=== PATIENT | male | born 1960 | race Caucasian/White ===

== ENCOUNTER 2017-04-23 11:25 | Inpatient (IN) | payer OTHER, MEDICARE ==
[~2017-04-23] VITALS: Ht 182.9 cm; Wt 104.3 kg
[~2017-04-23 11:25] MED LIST: BACTRIM DS 8001 TAB PO; DULOXETINE HCL30 MG PO; GABAPENTIN300 M2 PO; JANUMET 50-1,01 EACH PO; KEFLEX500 MG PO; LANTUS SOL100 UNIT/1 SC; LISINOPRIL10 M1 PO; NAPROSYN500 M1 PO; NEURONTIN300 M1 PO; NOVOLOG100 U/ML SC; PERCOCET 325 MG1 TA2 PO; PERCOCET 5-3251 EACH PO; QUETIAPINE FUM100 M1 PO; REMERON30 M3 PO
--- NOTE | 2017-04-23 11:30 | NUR ---
HOMERO FROM HOME. PT A DIABETIC REPORTS NAUSEA FOR 3 DAYS, UNABLE TO TAKE IN PO FOR 2 DAYS. ALSO REPORTS BURNING SOLES OF FEET ON DECK WHEN HE WENT TO [employer] [place].
--- NOTE | 2017-04-23 11:34 | NUR ---
PT WITH OPEN AREAS TO BOTTOM OF FEET, OPEN TO AIR.
[2017-04-23] MEDS ORDERED: METFORMIN HCL500 M3 PO (11:39)
[2017-04-23] MEDS ORDERED: JANUVIA100 M1 PO (11:39)
--- NOTE | 2017-04-23 11:45 | ED GENERAL ADULT ---
History of Present Illness General Chief Complaint: General Adult Stated Complaint: BIBA FOR NAUSEA X FEW DAYS, MERIDA SOLES OF FEET Source: patient Exam Limitations: no limitations Vital Signs & Intake/Output Vital Signs & Intake/Output Vital Signs Date Time Temp Pulse Resp B/P B/P Pulse O2 O2 Flow FiO2 Mean Ox Delivery Rate 04/23 1603 98.4 87 22 168/84 98 Room Air 04/23 1447 97.1 88 20 198/100 06 1350 97.5 89 16 198/100 98 Room Air 04/23 1127 97.2 88 20 190/95 96 Room Air Allergies Coded Allergies: NO KNOWN ALLERGIES (11/18/14) Reconcile Medications Duloxetine HCl 30 MG CAPSULE.DR 3 CAP PO DAILY MENTAL HEALTH (Reported) Gabapentin 300 MG CAPSULE 2 CAP PO TID PAIN (Reported) Insulin Glargine,Hum.rec.anlog (Lantus Solostar) 100 UNIT/ML (3 ML) INSULN.PEN 20 UNIT SC QPM DM (Reported) Insulin Glargine,Hum.rec.anlog (Lantus Solostar) 100 UNIT/1 ML INSULN.PEN 28 UNIT SC QPM DIABETES (Reported) Lisinopril 10 MG TABLET 1 TAB PO DAILY HEART (Reported) Metformin HCl 500 MG TABLET 1 TAB PO BID DIABETES (Reported) Mirtazapine (Remeron) 30 MG TABLET 1 TAB PO QPM SLEEP (Reported) Quetiapine Fumarate 100 MG TABLET 1 TAB PO QPM SLEEP (Reported) Sitagliptin Phos/Metformin HCl (Janumet 50-1,000 MG Tablet) 1 EACH TABLET 1 TAB PO BID DIABETES (Reported) Sitagliptin Phosphate (Januvia) 100 MG TABLET 1 TAB PO DAILY DIABETES ( Reported) Triage Note: BIBA FROM HOME. PT A DIABETIC REPORTS NAUSEA FOR 3 DAYS, UNABLE TO TAKE IN PO FOR 2 DAYS. ALSO REPORTS BURNING SOLES OF FEET ON DECK WHEN HE WENT TO [place]. Triage Nurses Notes Reviewed? yes Onset: Abrupt Duration: getting worse Timing: recent history Severity: moderate Severity Numbers: 5 HPI: Patient is a 56-year-old male who is a type I diabetic insulin-dependent, hypertension hyperlipidemia and peripheral neuropathy who states that 3 days ago on Wednesday he was ambulating outside on his deck where he noted today of concerns of skin peeling to the bottom of his feet where he thinks that he burned his feet outside that began Wednesday. Patient states that he does not feel any sensation to his feet due to his peripheral neuropathy and was brought in by [facility] for concerns of infection where he has developed tactile fevers and redness to the bottom of his feet to have tracked to the top of FEET. Patient also has been complaining of three-day history of nausea and decreased by mouth intake and is not taking his medications. Patient also complains of generalized weakness and fatigue Denies any history of DKA Patient does state that he smokes cigarettes and drinks 10 ALCOHOLIC beverages a week Patient's biological inspector is Dr. Dunne (DESTINEE PROCTOR) Past History Travel History Traveled to [place] past 21 day No Medical History Any Pertinent Medical History? see below for history Neurological: NEUROPATHY EENT: NONE Cardiovascular: NONE Respiratory: NONE Gastrointestinal: NONE Hepatic: NONE Renal: NONE Musculoskeletal: NONE Psychiatric: alcohol dependence, depression Endocrine: IDDM Surgical History Surgical History: non-contributory Psychosocial History What is your primary language Fijian Tobacco Use: Current Daily Use Daily Tobacco Use Amount/Type: => 5 Cigarettes daily ETOH Use: occasional use Illicit Drug Use: denies illicit drug use Family History Hx Contributory? No (DESTINEE PROCTOR) Review of Systems Review of Systems Constitutional: Reports: see HPI, fever, malaise, weakness. EENTM: Reports: no symptoms. Respiratory: Reports: see HPI. Denies: cough, short of breath. Cardiovascular: Reports: see HPI. Denies: chest pain, palpitations. GI: Reports: see HPI, nausea. Denies: abdominal pain. Genitourinary: Reports: no symptoms. Musculoskeletal: Reports: no symptoms. Skin: Reports: see HPI. Neurological/Psychological: Reports: no symptoms. Hematologic/Endocrine: Reports: no symptoms. Immunologic/Allergic: Reports: no symptoms. All Other Systems: Reviewed and Negative (DESTINEE PROCTOR) Physical Exam Physical Exam General Appearance: no apparent distress, alert, comfortable Comments: HEENT: Normal EENT exam, Neck: Supple, no lymphadenopathy, normal range of motion without pain or tenderness Back: Nontender, no CVA tenderness. Cardiovascular: Regular rate and rhythms no murmurs rubs or gallops, normal JVP Respiratory: Chest nontender. No respiratory distress.breath sounds clear to auscultation bilaterally Abdomen: Soft, nontender nondistended, no appreciable organomegaly. Normal bowel sounds. No ascites Neuro: Alert oriented x3, motor sensory normal, Psych: Mood and affect is normal, memory and judgment is normal. Extremities- Right foot- noted superficial 3 cm x 4 cm superficial skin burn with peripheral edge peeling skin with noted surrounding erythema to the plantar aspect and dorsal aspect of foot Left foot noted superficial 3 cm x 4 cm superficial skin burn with peripheral edge did peeling skin with noted surrounding erythema on the plantar aspect and dorsal aspect of foot with linear ascending erythema to the anterior aspect of his lower leg Bilateral lower extremities dermatomes not intact No exposed bone no exposed tendon no active bleeding Core Measures ACS in differential dx? No CVA/TIA Diagnosis: No Severe Sepsis Present: No Septic Shock Present: No (THAIS CASTORENA,DESTINEE) Progress Differential Diagnoses I considered the following diagnoses in my evaluation of the patient: [ Cellulitis, superficial burn, partial-thickness burn, lymphangitis, osteomyelitis, and DKA, hyperglycemia,] Plan of Care: Orders Procedure Date/time Status CBC WITHOUT DIFFERENTIAL 04/24 0600 Active BASIC ELECTROLYTES PLUS BUN&CR 04/24 0600 Active Consistent Carbohydrate 2 04/23 D Active LACTIC ACID 04/23 2040 Active Change service to 04/23 1630 Active LACTIC ACID 04/23 1454 Complete Vital Signs 04/23 1436 Active Teach/Educate 04/23 1436 Active Pain Treatment and Response 04/23 1436 Active Nutritional Intake, Monitor 04/23 1436 Active Isolation 04/23 1436 Active Intake & Output 04/23 1436 Active Patient Care Conference 04/23 1436 Active Activity/Ambulation 04/23 1436 Active Pathway - chart 04/23 1421 Active Pathway - chart 04/23 1418 Active House Staff 04/23 1418 Active Code Status 04/23 1418 Active Admit to inpatient 04/23 1355 Active Vital Signs 04/23 1355 Active Code Status 04/23 1355 Complete Patient Data 04/23 1333 Active TROPONIN LEVEL 04/23 1215 Complete LIPASE 04/23 1215 Complete C-REACTIVE PROTEIN 04/23 1215 Complete AMYLASE 04/23 1215 Complete WESTERGREN SED RATE 04/23 1156 Complete MIXED VENOUS BLOOD GAS (GEN) 04/23 1154 Active BLOOD CULTURE 04/23 1154 Active LACTIC ACID 04/23 1154 Complete COMPREHENSIVE METABOLIC PANEL 04/23 1154 Complete CBC WITHOUT DIFFERENTIAL 04/23 1154 Complete ACETONE 04/23 1154 Complete EKG 04/23 1154 Active Intake & Output 04/23 1131 Active FingerStick- Glucose 04/23 1131 Complete PT Evaluate & Treat 04/23 UNK Active VTE Mechanical Prophylaxis 04/23 UNK Active Nursing Misc 04/23 UNK Active FingerStick- Glucose 04/23 UNK Active CIWA 04/23 UNK Active PHARMACY COMMUNICATION FORM 04/23 UNK Active MISSING MEDICATION FORM 04/23 UNK Active Current Medications Sig/Dale Start time Last Medication Dose Stop Time Status Admin Vancomycin HCl 1,500 MG Q12H 04/24 0800 AC Sodium Chloride 250 ML (Normal Saline 0.9%) Ceftazidime 1,000 MG Q8H 04/24 0400 AC (Fortaz) Insulin Detemir 20 UNITS QPM 04/23 2200 AC (Levemir) Mirtazapine 30 MG QPM 04/23 2200 AC (Remeron) Quetiapine Fumarate 100 MG QPM 04/23 2200 AC (Seroquel) Insulin Aspart 0 TIDAC 04/23 1700 AC 04/23 (NovoLOG) 1726 Gabapentin 600 MG TID 04/23 1600 AC 04/23 (Neurontin) 1726 Silver Sulfadiazine 1 RHIANNON DAILY NEEDED PRN 04/23 1530 AC (Silvadene Cream 50GM ) Nicotine 14 MG DAILY 04/23 1528 AC 04/23 (Nicotine Cq) 1725 Acetaminophen 650 MG Q6P PRN 04/23 1430 AC (Tylenol) Acetaminophen/ 1 TAB Q6P PRN 04/23 1430 AC Hydrocodone Bitart (Vicodin) Cyanocobalamin/ 1 BAG ONCE ONE 04/23 1430 AC 04/23 Thiamine/Pyridoxine 04/23 2229 1852 (Vitamin in I.V.) Dextrose/Water 1,000 ML (D5W 1000) Lorazepam 2 MG Q2P PRN 04/23 1430 AC (Ativan) Lorazepam 1 MG Q2P PRN 04/23 1430 AC (Ativan) Morphine Sulfate 2 MG Q4P PRN 04/23 1430 AC (Morphine) Polyethylene Glycol 17 GM DAILY NEEDED PRN 04/23 1430 AC (Miralax) Trimethobenzamide HCl 200 MG 4 TIMES/DAY PRN 04/23 1430 AC 04/23 (Tigan) 1559 Duloxetine HCl 90 MG DAILY 04/23 1418 AC 04/23 (Cymbalta) 1726 Lisinopril 10 MG DAILY 04/23 1418 AC 04/23 (Prinivil) 1447 Heparin Sodium 5,000 UNIT Q8 04/23 1416 AC 04/23 (Porcine) 1725 Sodium Chloride 1,000 ML BOLUS ONE 04/23 1300 CAN (Normal Saline 0.9%) 04/23 1359 Laboratory Tests 04/23/17 1641: Lactic Acid 1.9 04/23/17 1305: Bicarbonate Actual 26, Mixed VBG pH 7.43 H, Mixed VBG pCO2 41, Mixed VBG O2 Saturation 50 H, Carboxyhemoglobin 1.9 04/23/17 1215: ESR Westergren 75 H 04/23/17 1215: Anion Gap 14, Estimated GFR > 60, BUN/Creatinine Ratio 24.3, Glucose 225 H, Lactic Acid 1.7, Calcium 8.8, Total Bilirubin 2.0 H, AST 19, ALT 36, Alkaline Phosphatase 107, Troponin I < 0.01, C-Reactive Prot, Quant > 9.0 H, Total Protein 6.8, Albumin 3.6, Globulin 3.2, Albumin/Globulin Ratio 1.1, Amylase 38, Lipase 58, CBC w Diff MAN DIFF ORDERED, RBC 4.95, MCV 88.6, MCH 30.2, RDW 13.5, MPV 7.9, Gran % 90.2 H, Lymphocytes % 5.9 L, Monocytes % 3.2, Eosinophils % 0.1, Basophils % 0.6, Absolute Granulocytes 14.6 H, Absolute Lymphocytes 1.0 L , Absolute Monocytes 0.5, Absolute Eosinophils 0, Absolute Basophils 0.1, Platelet Estimate VERIFIED BY SMEAR, Normocytic RBCs VERIFIED, Normochromic RBCs VERIFIED, PUBS MCHC 34.1, Acetone Level POSITIVE AT 1:8 DIL 04/23/17 1156: C-Reactive Prot, Quant Cancelled 04/23/17 1155: Troponin I Cancelled, Amylase Cancelled, Lipase Cancelled Microbiology 04/23 1250 BLOOD: Blood Culture - RECD 04/23 1215 BLOOD: Blood Culture - RECD Patient on initial examination noted to have superficial merida with significance of surrounding cellulitis of bilateral feet and left-sided lymphangitis with noted linear ascending erythema to the left lower extremity Very little suspicion of osteomyelitis however x-rays and inflammatory markers will be evaluated And has nontender abdomen Discussed patient with WOUND CARE- [facility] for consult and treatment for patient's wounds WITH debridement OF PERIPHERAL EDGES and irrigation Wound care debrided peripheral edges clean wounds applied Silvadene and Xeroform and bandaged patient's feet I also discussed admission with biological inspector Dr. Pacheco was aware of admission and is not concerned upon admission of DKA (THAIS CASTORENA,DESTINEE) Diagnostic Imaging: Viewed by Me: Radiology Read. Radiology Impression: no fracture Initial ED EKG: normal p-waves, normal QRS complex, NSR 89 BPM Prior EKG: unchanged Comments: PATIENT: MARYLIN CUI PRESENT AGE: 56 PATIENT ACCOUNT NO: [id number] : 58 LOCATION: [facility] ORDERING PHYSICIAN: DESTINEE CASTORENA SERVICE DATE: 04/23/17 EXAM TYPE: RAD - XRY-FOOT COMPLETE, LEFT EXAMINATION: XR FOOT, LEFT CLINICAL INFORMATION: Burn on plantar feet COMPARISON: 09/03/2016 right foot TECHNIQUE: AP, lateral, and oblique views of the left foot. AP, lateral, and oblique views of the right foot. FINDINGS: Left foot: No radiopaque foreign body. No soft tissue air. No underlying acute osseous abnormality. Marked soft tissue swelling at the level of the metatarsals. Small calcaneal spurs. Right foot: Soft tissue swelling at the level of the metatarsals. No radiopaque foreign body or soft tissue air. No underlying fracture or dislocation. No interval change in appearance. Tiny calcaneal spur at the Achilles tendon insertion increase in size from 2016. Degenerative spur at the first tarsometatarsal joint unchanged. IMPRESSION: Bilateral soft tissue swelling centered at the level of the metatarsophalangeal joints. No underlying osseous abnormality. DICTATED BY: TATE LEW MD PATIENT: MARYLIN CUI PRESENT AGE: 56 PATIENT ACCOUNT NO: [id number] : 58 LOCATION: [facility] ORDERING PHYSICIAN: DESTINEE CASTORENA SERVICE DATE: 04/23/17 EXAM TYPE: RAD - XRY-FOOT COMPLETE, R EXAMINATION: XR FOOT, RIGHT CLINICAL INFORMATION: Thermal injury COMPARISON: 09/03/2016 TECHNIQUE: AP, lateral, and oblique views of the right foot. FINDINGS: Soft tissue swelling at the level of the metatarsophalangeal joints. No soft tissue gas or radiopaque foreign body. No underlying fracture, dislocation or acute osseous abnormality. Spurring at the first metatarsal phalangeal joint unchanged. Slight increase in size of small calcaneal spur. IMPRESSION: Soft tissue swelling without underlying osseous abnormality. DICTATED BY: TATE LEW MD DATE/TIME DICTATED:04/23/171507 PATIENT: MARYLIN CUI PRESENT AGE: 56 PATIENT ACCOUNT NO: [id number] : 58 LOCATION: [facility] ORDERING PHYSICIAN: DESTINEE CASTROENA SERVICE DATE: 04/23/17 EXAM TYPE: RAD - XRY-CHEST XRAY, PA AND LATERAL EXAMINATION: XR CHEST CLINICAL INFORMATION: Burn. Admission. COMPARISON: 11/26/2009 TECHNIQUE: 2 views of the chest were obtained. FINDINGS: The lungs are well expanded. There is no focal consolidation, edema, or effusion. No pneumothorax. The cardiomediastinal silhouette is within normal limits. No acute osseous abnormality. IMPRESSION: No acute pulmonary findings. DICTATED BY: VANESA WILSON MD DATE/TIME DICTATED:04/23/171511 (DESTINEE PROCTOR) Departure Departure Disposition: STILL A PATIENT Condition: Stable Clinical Impression Primary Impression: Cellulitis of both feet Secondary Impressions: Lymphangitis, acute, lower leg, Superficial burn of foot Referrals: MIGUEL ARGUETA MD (PCP/Family) Departure Forms: Customer Survey General Discharge Information Admission Note Spoke With: MIGUEL MITCHELL MD Documentation of Exam: Documentation of any treatments & extenuating circumstances including Concerns Regarding Discharge (functional status, medication knowledge or non-compliance, living conditions, etc.) that warrant an admission rather than observation: [ Discussed PT with Dr. Mitchell who agrees with general medicine for concerns of cellulitis from plantar aspect of superficial merida. Patient requires IV antibiotics, wound care, endocrinology consultation, PODIATRY CONSULTATION, IV fluid resuscitation, repeat blood work cultures pending. Outpatient treatment at this time would be medically harmful] (DESTINEE PROCTOR) PA/MANAGER PUBLIC Co-Sign Statement Statement: ED Attending supervision documentation- [] I saw and evaluated the patient. I have also reviewed all the pertinent lab results and diagnostic results. I agree with the findings and the plan of care as documented in the PA's/MANAGER PUBLIC's documentation. [x] I have reviewed the ED Record and agree with the PA's/MANAGER PUBLIC's documentation. [] Additions or exceptions (if any) to the PAs/MANAGER PUBLIC's note and plan are summarized below: [] (VALERIE CONN,LEAH Deluca) Critical Care Note Critical Care Note Critical Care Time: 30-74 min (DESTINEE PROCTOR)
--- NOTE | 2017-04-23 12:23 | NUR ---
BLOOD DRAWN AND SENT TO LAB. SST X3, LAV X2,BLUE,HOROWITZ AND 1ST OF BLOOD CULTURES
[2017-04-23 12:34] LABS: ABSOLUTE BASOPHIL COUNT 0.1 /CUMM (0.0-0.2); ABSOLUTE EOSINOPHIL COUNT 0 /CUMM (0.0-0.7); ABSOLUTE GRANULOCYTE CT 14.6 /CUMM (1.4-6.5); ABSOLUTE MONOCYTE COUNT 0.5 /CUMM (0.10-0.60); BASOPHIL % 0.6 % (0.0-2.0); EOSINOPHIL % 0.1 % (0-5); GRANULOCYTE % 90.2 % (42.2-75.2); HEMATOCRIT 43.9 % (42-52); MEAN CORPUSCULAR HGB 30.2 PG (27.0-31.0); MEAN CORPUSCULAR HGB CONC 34.1 G/DL (33.0-37.0); MEAN CORPUSCULAR VOLUME 88.6 FL (80.0-94.0); MEAN PLATELET VOLUME 7.9 FL (7.4-10.4); PLATELET COUNT 277 /CUMM (130-400); RBC DISTRIBUTION WIDTH 13.5 % (11.5-14.5); RED BLOOD CELL CT 4.95 /CUMM (4.70-6.10); WHITE BLOOD CELL COUNT 16.2 /CUMM (4.8-10.8)
--- NOTE | 2017-04-23 13:17 | NUR ---
wound care: requested by mykel CASTORENA to evaluate pt in ER for full thickness wounds to plantar surface of feet due to malone - pt reports he had been walking on hot deck and due to DM neuropathy sustained full thicnkess malone without his knowledge - hypoesthesia - no c/o at present time - discussed skin integrity with dr bolton - image sent to MD at pt request - per RAFFAELE pt to be admitted for cellulitis upon assessment, pt noted wtih deep partial thicnkess wounds to the plantar surface of ble - left great toe 3x3.8 cm and left plantar surface at ball of foot 7x6.7 cm overly dry desicated base with periwound dried peeled skin - right great toe 2.2 x 3.2 cm open wound - right ball of foot plantar surface 6.7 x 7.5 cm exposed dermis dry desicated base - non dnrg - cellulitic changes extending up dorsal aspect of foot pink warm to touch recommednation: non weight bearing, heel touch only - cleanse all wounds with ns fb silvadene ointment, xeroform, and dpd daily and prn - pt to f/u with podiatry post dc, and as needed if condition deterioirates
--- NOTE | 2017-04-23 13:53 | History & Physical ---
KATE SKAGGS MD 04/23/17 1353: General Information and HPI MD Statement: I have seen and personally examined MARYLIN CUI and documented this H&P. The patient is a 56 year old M who presented with a patient stated chief complaint of malone on feet. Source of Information: patient, old records Exam Limitations: no limitations History of Present Illness: Mr. Cui is a pleasant 56 year old male with PMH anxiety, depression, previous suicide attempt in 2009, type 1 diabetes mellitus with peripheral neuropathy on gabapentin, HTN and HLD who presented to [facility] with chief complaint of bilateral feet burn. According to the patient, two days ago he was walking barefoot on his porch while it was very warm and sriram outside. He subsequently noticed skin hanging off the soles of his feet; he was unaware he burned either but has peripheral neuropathy with minimal/no sensation on the soles of his feet. He also noted a two day history of decreased oral intake, minimal water inake, nausea, fever and chills; he is unable to report the exam temperature of his fever. He also notes chronic loose stools which have not changed recently. Marylin currently complaints of chills, fevers, lethargy, bilateral pedal erythema and open wounds. He denies dizziness, chest pain, shortness of breath, abdominal pain, vomiting, dysuria or weakness. Marylin has significant social history of tobacco use with 1 pack per day for 35 years. He also drinks 10 alcoholic beverages a week for the last 35 years. He denies illicit drug use. He lives at home by himself, is unemployed due to disability and uses a cane to ambulate. Surgical history is significant for hernia repair. Patient has followed with Dr. Rose in the past for prior foot ulcer which has previously heeled. Patient reports he has a living will at home and this outlines that he is a DNR/DNI. Allergies/Medications Allergies: Coded Allergies: NO KNOWN ALLERGIES (11/18/14) Home Med list Duloxetine HCl 30 MG CAPSULE. 3 CAP PO DAILY MENTAL HEALTH (Reported) Gabapentin 300 MG CAPSULE 2 CAP PO TID PAIN (Reported) Insulin Glargine,Hum.rec.anlog (Lantus Solostar) 100 UNIT/ML (3 ML) INSULN.PEN 20 UNIT SC QPM DM (Reported) Insulin Glargine,Hum.rec.anlog (Lantus Solostar) 100 UNIT/1 ML INSULN.PEN 28 UNIT SC QPM DIABETES (Reported) Lisinopril 10 MG TABLET 1 TAB PO DAILY HEART (Reported) Metformin HCl 500 MG TABLET 1 TAB PO BID DIABETES (Reported) Mirtazapine (Remeron) 30 MG TABLET 1 TAB PO QPM SLEEP (Reported) Quetiapine Fumarate 100 MG TABLET 1 TAB PO QPM SLEEP (Reported) Sitagliptin Phos/Metformin HCl (Janumet 50-1,000 MG Tablet) 1 EACH TABLET 1 TAB PO BID DIABETES (Reported) Sitagliptin Phosphate (Januvia) 100 MG TABLET 1 TAB PO DAILY DIABETES ( Reported) Compliance With Home Meds: FAIR Past History Travel History Traveled to [place] past 21 day No Medical History Neurological: NEUROPATHY EENT: NONE Cardiovascular: NONE Respiratory: NONE Gastrointestinal: NONE Hepatic: NONE Renal: NONE Musculoskeletal: NONE Psychiatric: alcohol dependence, depression Endocrine: IDDM Surgical History Surgical History: non-contributory Past Family/Social History Psychosocial History Where do you live? Home Who Do You Live With? self Services at Home: None Primary Language: Maltese Smoking Status: Current Everyday Smoker ETOH Use: occasional use Illicit Drug Use: denies illicit drug use Living Will? yes Functional Ability ADLs Independent: dressing, eating, toileting, bathing. Ambulation: cane IADLs Independent: shopping, housework, finances, food prep, telephone, transportation , medication admin. Employment History Employment Disability Review of Systems Review of Systems Constitutional: Reports: chills, fever, malaise. EENTM: Denies: blurred vision, visual changes, hearing changes, nasal congestion. Cardiovascular: Denies: chest pain, palpitations. Respiratory: Denies: cough, short of breath. GI: Reports: diarrhea, nausea. Denies: abdominal pain, changes in stool, vomiting. Genitourinary: Denies: dysuria, hematuria, pain. Musculoskeletal: Denies: back pain, joint pain. Skin: Reports: see HPI, change in skin color, erythema, lesions. Neurological/Psychological: Reports: numbness (Peripheral), paresthesia (Peripheral). Denies: confusion, headache. Hematologic/Endocrine: Denies: bruising, bleeding. Immunologic/Allergic: Denies: splenectomy. All Other Systems: Reviewed and Negative Exam & Diagnostic Data Last 24 Hrs of Vital Signs/I&O Vital Signs Date Time Temp Pulse Resp B/P B/P Pulse O2 O2 Flow FiO2 Mean Ox Delivery Rate 04/23 1350 97.5 89 16 198/100 98 Room Air 04/23 1127 97.2 88 20 190/95 96 Room Air Intake & Output 04/23 1600 04/23 0800 04/23 0000 Intake Total Output Total Balance Patient 230 lb Weight Weight Reported by Patient Measurement Method Physical Exam General Appearance Alert, Oriented X3, Cooperative, No Acute Distress Skin Right foot ulcer 3 cm x 4 cm with surrounding erythema (dorsal and plantar ). Left foot ulcer with noted ulcer (unable to track how deep) with surrounding erythema and extension of erythema to lower leg/dumont Right foot Skin Temp/Moisture Exam: Warm/Dry HEENT Atraumatic, PERRLA, EOMI, Slightly dry mucous membranes Neck Supple, No JVD, No thryomegaly Lymphatic Cervical nl Cardiovascular Regular Rate, Normal S1, Normal S2 Lungs Clear to Auscultation, Normal Air Movement Abdomen Obese, slightly firm, no appreciable organomegaly, no ascites, normal bowel sounds Neurological Normal Speech, Normal Tone Extremities No Clubbing, No Cyanosis, No Edema Vascular Pulses Symmetrical Last 24 Hrs of Labs/Gene: Laboratory Tests 04/23/17 1305: Bicarbonate Actual 26, Mixed VBG pH 7.43 H, Mixed VBG pCO2 41, Mixed VBG O2 Saturation 50 H, Carboxyhemoglobin 1.9 04/23/17 1215: ESR Westergren 75 H 04/23/17 1215: Anion Gap 14, Estimated GFR > 60, BUN/Creatinine Ratio 24.3, Glucose 225 H, Lactic Acid 1.7, Calcium 8.8, Total Bilirubin 2.0 H, AST 19, ALT 36, Alkaline Phosphatase 107, Troponin I < 0.01, C-Reactive Prot, Quant > 9.0 H, Total Protein 6.8, Albumin 3.6, Globulin 3.2, Albumin/Globulin Ratio 1.1, Amylase 38, Lipase 58, CBC w Diff MAN DIFF ORDERED, RBC 4.95, MCV 88.6, MCH 30.2, RDW 13.5, MPV 7.9, Gran % 90.2 H, Lymphocytes % 5.9 L, Monocytes % 3.2, Eosinophils % 0.1, Basophils % 0.6, Absolute Granulocytes 14.6 H, Absolute Lymphocytes 1.0 L , Absolute Monocytes 0.5, Absolute Eosinophils 0, Absolute Basophils 0.1, Platelet Estimate VERIFIED BY SMEAR, Normocytic RBCs VERIFIED, Normochromic RBCs VERIFIED, PUBS MCHC 34.1, Acetone Level POSITIVE AT 1:8 DIL 04/23/17 1156: C-Reactive Prot, Quant Cancelled 04/23/17 1155: Troponin I Cancelled, Amylase Cancelled, Lipase Cancelled Microbiology 04/23 1250 BLOOD: Blood Culture - RECD 04/23 1215 BLOOD: Blood Culture - RECD Diagnostic Data EKG Results NSR HR 89 bpm, QTC 439, left axis deviation Assessment/Plan Assessment: Mr. Cui is a pleasant 56 year old male with PMH anxiety, depression, previous suicide attempt in 2009, type 1 diabetes mellitus with peripheral neuropathy on gabapentin, HTN and HLD who presented to [facility] with chief complaint of bilateral feet burn. There is no prior history of cellulitis, though patient previously experienced non-healing ulcer of his foot and was followed by Dr. Rose for debridement. Current review of systems is significant for fever, chills, nausea and bilateral feet erythema/ulcerations. In the ED: Vital signs showed T 97.2, HR 88, RR 20, BP 190/95 and O2 saturation of 96% on RA. Labs were significant for WBC 16.2 wiht 90.2% granulocytes, H&H 14.9/43.9, Plt 277, Na 135, K 4.1, Cl 94, HCO3 27, Anion gap 14, BUN/cre 17/0.7, Glu 225, lactic acid 1.7, TBili 2, AST/ALT normal, troponin <0.01, ESR 75, CRP > 9, normal amylase/lipase. Acetone positive. Patient is admitted to the general medicine floor and the following is the management: 1. Bilateral soft tissue infection * Noted fever, chills, leukocytosis and erythema with bilateral feet ulcers on presentation * Patient given IV unasyn in ED * Start ceftazidime and vancomycin for now pending culture results, narrow antibiotic coverage as indicated * Podiatry consult with Dr. Rose placed, follow up recommendations * Local wound care as directed by wound care nurse * No pain at present, if pain use tylenol for mild pain, vicodin for moderate, morphine for severe pain * Follow up CBC in AM to monitor for improvement in leukocytosis * Initial lactic acid normal, follow up repeat level now 2. Starvation ketosis * Poor PO intake over the last 2 days with mild hyperglycemia to 225 with normal AG and positive acetone suggestive of starvation ketosis * Patient received 3 L normal saline in the ED, will continue banana bag for now * Tigan PRN nausea * Encourage oral intake and CC2 diet 3. Diabetes mellitus * On lantus, janumet and metformin at home which are currently placed on hold * Accuchecks TIDAC/HS * NSS TIDAC and 20 U SC levemir QPM * Continue gabapentin 600 mg PO TID for peripheral neuropathy 4. Uncontrolled HTN * BP on admission elevated to 198/100, though BP coming down nicely, currently at 168/84 * Vital signs Q shift * Continue home lisinopril 10 mg PO daily 5. ETOH abuse * Patient endorsed 10 alcoholic beverages/week for the last 35 years, though he has had poor PO intake the last 2 days * CIWA scoring * Ativan PRN per CIWA scoring * Encourage alcohol cessation * Banana bag x 1 then consider starting MV, thiamine, folate 6. Depression/anxiety * Continue seroquel 100 mg PO QPM * Cymbalta 90 mg PO daily 7. Tobacco use * Tobacco cessation counseling provided * Nicotine patch 14 mg top daily DNR/DNI CC2 diet Mild to severe pain pathway DVTP: Heparin SC As Ranked By This Provider Problem List: 1. Superficial burn of foot 2. Foot ulcer 3. Cellulitis Core Measures/Miscellaneous Acute Coronary Syndrome ACS Diagnosis: No Cerebrovascular Accident CVA/TIA Diagnosis: No Congestive Heart Failure CHF Diagnosis: No VTE (View Protocol) VTE Risk Factors: Acute medical illness, Age > 40, Obesity, Smoking No [facility] VTE prophylaxis d/t: No contraindications No VTE Pharm Prophylaxis d/t: No contraindications VTE Diagnosis: No VTE Type: NONE VTE Confirmed by (Test): NONE Sepsis (View Protocol) Severe Sepsis Present: No Septic Shock Septic Shock Present: No Miscellaneous Documentation Attending Case Discussed With: Dr. Delores Wu MD Primary Care Physician: MIGUEL ARGUETA MD Patient sees these Specialists Dr. Rose Level of Patient Care: General Medicine HIREN GROSS 04/23/17 1454: Resident Review Statement Resident Statement: examined this patient, discussed with contracts intern, agreed with contracts intern, discussed with family, reviewed EMR data (avail), discussed with nursing , discussed with case mgmt, reviewed images, amended to note Other Findings: 56-year-old gentleman was brought in for for lower extremity wounds. Patient has a past medical history significant for diabetes, diabetic neuropathy, severe anxiety and depression and history of suicidal idaetion in 2010, HTN. According to patient, he incidentally noticed deep burn wounds on his soles when he was cleaning his feet. Patient thinks this damage was done about two days and half ago while he was working bare foot outside on the deck. However, due to his neuropathy, burn and wound was pain-free. Over the course of past 2 days patient developed rigors, and became nauseous. For the past 2 days he was not able to take any medication due to his nauseousness. Review of system: Patient reports rigors, nausea. Vital signs: 97.2/88/20/190/95/.PH/EX: HEET: Slightly dry mucous membranes; cardiovascular lungs are normal, abdomen: No tenderness no guarding no rebound; extremities: Seemingly deep burn wounds soles B/L, no erythema except for a limited area on the left dumont, Ne tenderness to touch, no warmth, was not able to do probe to bone test: sesation: socks distrivution B/L, Neuro: normal Pertinent findings WBC 16.2 with left shift no bandemia, H&H: 14.9, 43.9, platelets 279, sodium 135 , potassium 4.1, BUN/creatinine 0.7/17, blood sugar 225, total bilirubin 2, liver enzymes within normal limits, alkaline phosphatase normal. ESR 75 Lower extremity been Hypertension Diabetes EtOH dependency Nicotine dependence Elevated bilirubin List of active problems #1 left lower extremities been and deep tissue infection: There is a possibility of osteomyelitis in addition to soft tissue infection. Patient's ESR is also elevated. I was not able to do probe to bone tests. The results of the x-ray of both feet are pending. In case of reporting any abnormality (per son reaction in x-ray, diagnosis of osteomyelitis would be encouraged. In any case considering his history of diabetes and deep wound/soft tissue infection/ possible osteomyelitis patient needs broader spectrum antibiotic coverage with vancomycin for gram-positive and ceftazidime for gram-negative (Pseudomonas infection). Admit to general med IV vancomycin 15 mg per KG per day Ceftazidime IV daily Follow Dr. Vieira's note possible need for bedside or or differential treatments; in that case we will culture deep surgical samples Daily CBC Follow blood culture results Tigan 200 mg 4 times a day as needed for nausea Hypertension Lisinopril 10 mg by mouth daily Diabetes Diabetes diets Fingersticks 3 times a day and at bedtime Levemir 20 units at bedtime Insulin aspart sliding his skills 3 times a day and at bedtime medium dose Gabpentin 200 mg Q8 Stop metformin and stop Januvia Check HbA1c EtoH and Nicotine abuse and dependence Banana bag 100 mL per hour, one bag Start by mouth thiamine, folic acid, and multivitamin Nicotine patch 14 mg a day CIWA score every 2 hours CIWA score triggered PO ativan low and high doses Anxiety and depression Continue home meds DVT prophylaxis-heparin 5000 units every 8 hours Pain pathway: Continue home, pinching, by mouth Tylenol as needed, by mouth oxycodone, IV morphine 2 mg every 4 hours as needed for severe pain DNR/DNI ASHWIN COONEY,[facility] 04/23/17 1527: Attending MD Review Statement Attending Statement Attending MD Statement: examined this patient, discuss w/resident/PA/CABLE BRAIDER, agreed w/resident/PA/CABLE BRAIDER, reviewed EMR data (avail), discussed with nursing, discussed with case mgmt, reviewed images, amended to note Attending Assessment/Plan: 56 y/o M with pmh sig for anxiety, depression, previous suicide attempt in 2009, type 1 diabetes mellitus with peripheral neuropathy on gabapentin, HTN and HLD p /w b/l foot burn wounds. He went on his stack couple of days ago barefooted. He did not notice any injury or pain because he has peripheral neuropathy. Yesterday he was not feeling well and was feeling very tired and exhausted. He was feeling nauseous although did not throw up. He also claims that he has not taken his insulin colonoscopy of days. He finally noticed attack of skin hanging at the bottom of his feet. It is necrotic. He finally presented to the emergency room. In the ER he was found to have bilateral burn injury to his feet (soles)and a streak of cellulitis extending on his left foot onto his left lower extremity. He complains of pain MCV antibody but has a peripheral neuropathy so denies any pain in his feet. He was afebrile in the emergency room but had leukocytosis. X-rays of bilateral feet is negative for any osteo Vital Signs Date Time Temp Pulse Resp B/P B/P Pulse O2 O2 Flow FiO2 Mean Ox Delivery Rate 04/23 1447 97.1 88 20 198/100 04/23 1350 97.5 89 16 198/100 98 Room Air 04/23 1127 97.2 88 20 190/95 96 Room Air on exam; aox3, nad. cv; s1,s2, rrr resp; clear abd; soft, nt, bs+ ext; no edema. Laboratory Tests 04/23 04/23 04/23 1305 1215 1215 Blood Gas Bicarbonate Actual (22 - 26 MEQ/L) 26 Mixed VBG pH (7.31 - 7.41 PH) 7.43 H Mixed VBG pCO2 (41 - 51 TORR) 41 Mixed VBG O2 Saturation (35 - 45 TORR) 50 H Carboxyhemoglobin (1.5 - 5.0 %) 1.9 Chemistry Sodium (137 - 145 mmol/L) 135 L Potassium (3.5 - 5.1 mmol/L) 4.1 Chloride (98 - 107 mmol/L) 94 L Carbon Dioxide (22 - 30 mmol/L) 27 Anion Gap (5 - 16) 14 BUN (9 - 20 mg/dL) 17 Creatinine (0.7 - 1.2 mg/dL) 0.7 Estimated GFR (>60 ml/min) > 60 BUN/Creatinine Ratio (7 - 25 %) 24.3 Glucose (65 - 99 mg/dL) 225 H Lactic Acid (0.7 - 2.1 mmol/L) 1.7 Calcium (8.4 - 10.2 mg/dL) 8.8 Total Bilirubin (0.2 - 1.3 mg/dL) 2.0 H AST (17 - 59 U/L) 19 ALT (21 - 72 U/L) 36 Alkaline Phosphatase (< 127 U/L) 107 Troponin I (<0.11 ng/ml) < 0.01 C-Reactive Prot, Quant (<1.0 mg/dL) > 9.0 H Total Protein (6.3 - 8.2 g/dL) 6.8 Albumin (3.5 - 5.0 g/dL) 3.6 Globulin (1.9 - 4.2 gm/dL) 3.2 Albumin/Globulin Ratio (1.1 - 2.2 %) 1.1 Amylase (30 - 110 U/L) 38 Lipase (23 - 300 U/L) 58 Hematology CBC w Diff MAN DIFF ORDERED WBC (4.8 - 10.8 /CUMM) 16.2 H RBC (4.70 - 6.10 /CUMM) 4.95 Hgb (14.0 - 18.0 G/DL) 14.9 Hct (42 - 52 %) 43.9 MCV (80.0 - 94.0 FL) 88.6 MCH (27.0 - 31.0 PG) 30.2 RDW (11.5 - 14.5 %) 13.5 Plt Count (130 - 400 /CUMM) 277 MPV (7.4 - 10.4 FL) 7.9 Gran % (42.2 - 75.2 %) 90.2 H Lymphocytes % (20.5 - 51.1 %) 5.9 L Monocytes % (1.7 - 9.3 %) 3.2 Eosinophils % (0 - 5 %) 0.1 Basophils % (0.0 - 2.0 %) 0.6 Absolute Granulocytes (1.4 - 6.5 /CUMM) 14.6 H Absolute Lymphocytes (1.2 - 3.4 /CUMM) 1.0 L Absolute Monocytes (0.10 - 0.60 /CUMM) 0.5 Absolute Eosinophils (0.0 - 0.7 /CUMM) 0 Absolute Basophils (0.0 - 0.2 /CUMM) 0.1 Platelet Estimate (ADEQUATE) VERIFIED BY SMEAR Normocytic RBCs VERIFIED Normochromic RBCs VERIFIED PUBS MCHC (33.0 - 37.0 G/DL) 34.1 ESR Westergren (0 - 10 MM) 75 H Toxicology Acetone Level (NEGATIVE) POSITIVE AT 1:8 DIL 04/23 04/23 1156 1155 Chemistry Troponin I Cancelled C-Reactive Prot, Quant Cancelled Amylase Cancelled Lipase Cancelled All imaging reviewed. A/P: 56 y/o M with pmh sig for anxiety, depression, previous suicide attempt in 2009, type 1 diabetes mellitus with peripheral neuropathy on gabapentin, HTN and HLD admitted with bilateral Maharaj wound on the soles of his feet and associated cellulitis. Patient does have leukocytosis, high ESR and CRP. X-ray of bilateral feet is negative for any osteomyelitis. He also has positive acetone but negative anion gap. Patient will be admitted to medicine. He was given Unasyn in the emergency room. Being a diabetic patient and deep burn wound, there is some concern for providing pseudomonal coverage. Patient will be covered with broad-spectrum abx for now. Podiatry will be consulted. If Dr. Rose recommends doing deeper debridement of the wound, cultures can be sent from that debridement. He was seen by wound care nurse Paige wolfe in ER and she debrided the wound. Blood cultures were also sent. ABx coverage will be narrowed if cultures remain negative or grow something different. We will keep the patient on his long-acting insulin. He will also be covered with sliding scale insulin. Continue the rest of his medications. His blood sugars should be monitored. His ESR and CRP should be monitored. DVT prophylaxis: Hep sq Full code.
--- NOTE | 2017-04-23 14:23 | NUR ---
PT HAS BED ASSIGNMENT 215-2. RN NOTIFIED.
[2017-04-23] MEDS ORDERED: LANTUS SOL100 UNIT/1 SC (14:24)
--- NOTE | 2017-04-23 14:35 | NUR ---
REPORT CALLED TO CALVIN EDWARD
--- NOTE | 2017-04-23 15:12 | RADIOLOGY REPORT ---
EXAMINATION: XR FOOT, RIGHT CLINICAL INFORMATION: Thermal injury COMPARISON: 09/03/2016 TECHNIQUE: AP, lateral, and oblique views of the right foot. FINDINGS: Soft tissue swelling at the level of the metatarsophalangeal joints. No soft tissue gas or radiopaque foreign body. No underlying fracture, dislocation or acute osseous abnormality. Spurring at the first metatarsal phalangeal joint unchanged. Slight increase in size of small calcaneal spur. IMPRESSION: Soft tissue swelling without underlying osseous abnormality.
--- NOTE | 2017-04-23 15:12 | RADIOLOGY REPORT ---
EXAMINATION: XR FOOT, LEFT CLINICAL INFORMATION: Burn on plantar feet COMPARISON: 09/03/2016 right foot TECHNIQUE: AP, lateral, and oblique views of the left foot. AP, lateral, and oblique views of the right foot. FINDINGS: Left foot: No radiopaque foreign body. No soft tissue air. No underlying acute osseous abnormality. Marked soft tissue swelling at the level of the metatarsals. Small calcaneal spurs. Right foot: Soft tissue swelling at the level of the metatarsals. No radiopaque foreign body or soft tissue air. No underlying fracture or dislocation. No interval change in appearance. Tiny calcaneal spur at the Achilles tendon insertion increase in size from 2016. Degenerative spur at the first tarsometatarsal joint unchanged. IMPRESSION: Bilateral soft tissue swelling centered at the level of the metatarsophalangeal joints. No underlying osseous abnormality.
--- NOTE | 2017-04-23 15:16 | RADIOLOGY REPORT ---
EXAMINATION: XR CHEST CLINICAL INFORMATION: Burn. Admission. COMPARISON: 11/26/2009 TECHNIQUE: 2 views of the chest were obtained. FINDINGS: The lungs are well expanded. There is no focal consolidation, edema, or effusion. No pneumothorax. The cardiomediastinal silhouette is within normal limits. No acute osseous abnormality. IMPRESSION: No acute pulmonary findings.
[2017-04-23 16:00] VITALS: BP 168/84
[2017-04-23 16:03] VITALS: BP 168/84
--- NOTE | 2017-04-23 18:06 | NUR ---
QUESTIONED DR CHRISTINA GROSS REGARDING NS BOLUSES ORDERED AT 1300 & 1330 NOT GIVEN IN ER-DO WE NEED TO GIVE NOW. STATED HE WILL LOOK INTO. AWAITING NEW ORDERS.
[2017-04-23 21:26] VITALS: BP 144/84
--- NOTE | 2017-04-23 23:09 | NUR ---
LATE ENTRY: PATIENT ARRIVED FROM ER AT 1530 FROM ER, DX CELLULITIS REPORT GIVEN TO 1ST SHIFT RN CALVIN, WHO GAVE REPORT TO ME 98.4 87 22 168/84 98% ROOM AIR; A&O; LCTA; MERIDA TO BOTTOM ON FEET-WOUND CARE NOTE-NS F/B SILVADENE F/B XEROFORM F/B DRY CLEAN DRESSING; DAILY DSG; CURRENTLY CDI IV #20 TO LH WITH BANANA BAG RUNNING AT 125 ML/HR PT C/O NAUSEA, MEDICATED WITH TIGAN AND COMPAZINE. CIWA SCALE FOR 10 BEERS/WEEK. ORIENTED TO ROOM AND CALL PADGETT. SAFETY MAINTAINED, NEEDS WITHIN REACH.
[2017-04-24] VITALS: BP 144/84
--- NOTE | 2017-04-24 06:05 | PN- Housestaff ---
See Addendum Subjective Follow-up For: Lower extremity cellulitis IV Vanco and Fortaz#1 Complaints: no complaints Subjective: 56-year-old man was admitted for soft tissue infection of lower extremities status post bedside debridement in the emergency room on IV vancomycin and Fortaz D#1. Patient is generally feeling better. He denies any pain, fever, shaking chills, nausea, vomiting. He slept the whole night comfortably. This morning he is hungry and already ordered his breakfast. Vital signs: Stable, Review of Systems Constitutional: Reports: see HPI. Denies: chills, diaphoresis, fever, malaise, weakness, unexplained weight loss. EENTM: Reports: see HPI. Cardiovascular: Reports: no symptoms. Respiratory: Reports: no symptoms. Gastrointestinal: Reports: no symptoms. Skin: Reports: see HPI, change in skin color, lesions. Neurological/Psychological: Reports: see HPI. Objective Last 24 Hrs of Vital Signs/I&O Vital Signs Date Time Temp Pulse Resp B/P B/P Pulse O2 O2 Flow FiO2 Mean Ox Delivery Rate 04/24 0000 98.6 88 20 144/84 06/ 2126 98.6 88 20 144/84 96 Room Air 04/23 1603 98.4 87 22 168/84 98 Room Air 04/23 1600 98.4 87 20 168/84 /16 1447 97.1 88 20 198/100 04/23 1350 97.5 89 16 198/100 98 Room Air 04/23 1127 97.2 88 20 190/95 96 Room Air Intake & Output 04/24 0800 04/24 0000 04/23 1600 Intake Total 1140 1220 Output Total 600 Balance 1140 620 Intake, IV 900 500 Intake, Oral 240 720 Number 0 1 Bowel Movements Output, Urine 600 Patient 230 lb 230 lb Weight Weight Reported by Patient Reported by Patient Measurement Method Physical Exam General Appearance: Alert, Oriented X3, Cooperative Skin: considerable skin damage due to parent of bilateral lower extremities>> questionable soft tissue infection versus osteomyelitis HEENT: Atraumatic, PERRLA Neck: Supple Cardiovascular: Normal S1, Normal S2 Lungs: Normal Air Movement Abdomen: Soft, No Tenderness Neurological: Normal Speech Extremities: bilateral lower extremity thermal wounds. no maria esther pus; no erythema , no induration, no warmth, no tenderness of lower extremities, bilateral upper extremities are completely normal Vascular: Normal Pulses, Pulses Symmetrical Current Medications: Current Medications Sig/Dale Start time Last Medication Dose Route Stop Time Status Admin Acetaminophen 650 MG Q6P PRN 04/23 1430 AC PO Acetaminophen/ 1 TAB Q6P PRN 04/23 1430 AC Hydrocodone Bitart PO Ampicillin Sodium/ 0 .STK-MED ONE 04/23 1322 DC Sulbactam Sodium .ROUTE Ampicillin Sodium/ 1,500 MG ONCE ONE 04/23 1215 DC 04/23 Sulbactam Sodium IV 04/23 1244 1315 Sodium Chloride 100 ML Cefazolin Sodium 1,000 MG Q12 04/23 1524 DC IV Ceftazidime 1,000 MG Q8H 04/24 0400 AC 04/24 IV 0408 Ceftazidime 1,000 MG Q8H 04/23 1800 DC 04/23 IV 2009 Cyanocobalamin/ 1 BAG ONCE ONE 04/23 1430 DC 04/23 Thiamine/Pyridoxine IV 04/23 2229 1852 Dextrose/Water 1,000 ML Duloxetine HCl 90 MG DAILY 04/23 1418 AC 04/23 PO 1726 Gabapentin 600 MG TID 04/23 1600 AC 04/23 PO 2114 Heparin Sodium 5,000 UNIT Q8 04/23 1416 AC 04/24 (Porcine) SC 0511 Insulin Aspart 0 TIDAC 04/23 1700 AC 04/23 SC 1726 Insulin Detemir 20 UNITS QPM 04/23 2200 04/23 SC 2114 Lisinopril 10 MG DAILY 04/23 1418 AC 04/23 PO 1447 Lorazepam 2 MG Q2P PRN 04/23 1430 AC PO Lorazepam 1 MG Q2P PRN 04/23 1430 AC PO Mirtazapine 30 MG QPM 04/23 2200 04/23 PO 2114 Morphine Sulfate 2 MG Q4P PRN 04/23 1430 AC IV Nicotine 14 MG DAILY 04/23 1528 AC 04/23 TOP 1725 Ondansetron HCl 0 .STK-MED ONE 04/23 1300 DC .ROUTE Ondansetron HCl 4 MG ONCE ONE 04/23 1200 DC 04/23 IV 04/23 1201 1253 Polyethylene Glycol 17 GM DAILY NEEDED PRN 04/23 1430 AC PO Prochlorperazine 5 MG ONCE ONE 04/23 1900 DC 04/23 IV 04/23 1901 1913 Quetiapine Fumarate 100 MG QPM 04/23 2200 AC 04/23 PO 2114 Silver Sulfadiazine 1 RHIANNON DAILY NEEDED PRN 04/23 1530 AC TOP Sodium Chloride 1,000 ML BOLUS ONE 04/23 1315 DC IV 04/23 1414 Sodium Chloride 1,000 ML BOLUS ONE 04/23 1300 CAN IV 04/23 1359 Sodium Chloride 1,000 ML BOLUS ONE 04/23 1200 DC 04/23 IV 04/23 1259 1253 Trimethobenzamide HCl 200 MG 4 TIMES/DAY PRN 04/23 1430 AC 04/23 IM 1559 Vancomycin HCl 1,500 MG Q12H 04/24 0800 AC Sodium Chloride 250 ML IV Vancomycin HCl 1,500 MG Q12H 04/23 1800 DC 04/23 Sodium Chloride 250 ML IV 2009 Last 24 Hrs of Lab/Gene Results Last 24 Hrs of Labs/Mics: Laboratory Tests 04/23/17 2120: Lactic Acid 1.0 04/23/17 1641: Lactic Acid 1.9 04/23/17 1305: Bicarbonate Actual 26, Mixed VBG pH 7.43 H, Mixed VBG pCO2 41, Mixed VBG O2 Saturation 50 H, Carboxyhemoglobin 1.9 04/23/17 1215: ESR Westergren 75 H 04/23/17 1215: Anion Gap 14, Estimated GFR > 60, BUN/Creatinine Ratio 24.3, Glucose 225 H, Lactic Acid 1.7, Calcium 8.8, Total Bilirubin 2.0 H, AST 19, ALT 36, Alkaline Phosphatase 107, Troponin I < 0.01, C-Reactive Prot, Quant > 9.0 H, Total Protein 6.8, Albumin 3.6, Globulin 3.2, Albumin/Globulin Ratio 1.1, Amylase 38, Lipase 58, CBC w Diff MAN DIFF ORDERED, RBC 4.95, MCV 88.6, MCH 30.2, RDW 13.5, MPV 7.9, Gran % 90.2 H, Lymphocytes % 5.9 L, Monocytes % 3.2, Eosinophils % 0.1, Basophils % 0.6, Absolute Granulocytes 14.6 H, Absolute Lymphocytes 1.0 L , Absolute Monocytes 0.5, Absolute Eosinophils 0, Absolute Basophils 0.1, Platelet Estimate VERIFIED BY SMEAR, Normocytic RBCs VERIFIED, Normochromic RBCs VERIFIED, PUBS MCHC 34.1, Acetone Level POSITIVE AT 1:8 DIL 04/23/17 1156: C-Reactive Prot, Quant Cancelled 04/23/17 1155: Troponin I Cancelled, Amylase Cancelled, Lipase Cancelled Microbiology 04/23 1250 BLOOD: Blood Culture - RECD 04/23 1215 BLOOD: Blood Culture - RECD Lines/Diet/Fluids Restraints: none Assessment/Plan Assessment: 54-year-old gentleman was admitted yesterday for soft tissue infection of lower extremities which was preceded by deep thermal skin damage. #1 soft tissue skin infection: Considering his significant history of diabetes and steps and severity of his Skin damage, we found is prudent to start the patient on broad-spectrum antibiotic coverage including proper coverage for pseudomonal infection. * Continue IV vancomycin 1000 mg twice a day #day 1 * Continue IV Fortaz 800 mg 3 times a day 1 * Daily wound dressing * Pending assessment by Dr. Rose possible need for bedsides debridements * Follow microbiology results * Pain management * Elevate the affected limb. #2 history of nicotine and EtOH dependence: Not required any when necessary Ativan, persistently score low pain CIWA scale. Continue daily nicotine patch. #3 diabetes: Continue 20 units Levemir at bedtime and switch to high-dose insulin sliding scale pre-meals and carbohydrate consistent diet; fingersticks 3 times a day #4 history of hypertension: Stable; continue lisinopril 10 mg by mouth daily Problem List: 1. Foot ulcer 2. Soft tissue infection of foot Pain Ratin Pain Location: none Pain Goal: Pain 4 or less Pain Plan: tylenol oxycodone morphine Tomorrow's Labs & Rationales: cbc bep IV vanco and active infection DVT/Prophylaxis: mechanical, pharmacological Discharge Plan Stable for Discharge? No Anticipated Discharge (Day): three days
[2017-04-24 06:54] VITALS: BP 118/76
--- NOTE | 2017-04-24 07:00 | NUR ---
NURSING NOTE: PATIENT DID NOT VOID OVERNIGHT, STATED "I DIDNT HAVE TO GO OVERNIGHT." 296 PAGED X2. AWAITING REPLY. REPORT GIVEN TO DAY CHEYANNE FOX, URINAL AT BEDSIDE, NO C/O OF PAIN OR URGE TO URINATE. WILL CONT TO MONITOR.
[2017-04-24 08:00] LABS: ABSOLUTE BASOPHIL COUNT 0 /CUMM (0.0-0.2); ABSOLUTE EOSINOPHIL COUNT 0.1 /CUMM (0.0-0.7); ABSOLUTE GRANULOCYTE CT 5.9 /CUMM (1.4-6.5); ABSOLUTE LYMPH COUNT 1.7 /CUMM (1.2-3.4); ABSOLUTE MONOCYTE COUNT 0.8 /CUMM (0.10-0.60); BASOPHIL % 0.4 % (0.0-2.0); EOSINOPHIL % 1.2 % (0-5); GRANULOCYTE % 68.7 % (42.2-75.2); MEAN CORPUSCULAR HGB 30.5 PG (27.0-31.0); MEAN CORPUSCULAR VOLUME 89.8 FL (80.0-94.0); MEAN PLATELET VOLUME 7.7 FL (7.4-10.4); PLATELET COUNT 270 /CUMM (130-400); RBC DISTRIBUTION WIDTH 13.6 % (11.5-14.5); RED BLOOD CELL CT 3.98 /CUMM (4.70-6.10); WHITE BLOOD CELL COUNT 8.5 /CUMM (4.8-10.8)
[2017-04-24 09:31] LABS: HEMATOCRIT 35.7 % (42-52)
[2017-04-24 13:42] VITALS: BP 124/78
[2017-04-24 22:34] VITALS: BP 126/78
[2017-04-25 06:44] VITALS: BP 108/64
[2017-04-25 08:27] LABS: ABSOLUTE BASOPHIL COUNT 0 /CUMM (0.0-0.2); ABSOLUTE EOSINOPHIL COUNT 0.1 /CUMM (0.0-0.7); ABSOLUTE GRANULOCYTE CT 5.2 /CUMM (1.4-6.5); ABSOLUTE LYMPH COUNT 1.6 /CUMM (1.2-3.4); ABSOLUTE MONOCYTE COUNT 0.7 /CUMM (0.10-0.60); BASOPHIL % 0.4 % (0.0-2.0); EOSINOPHIL % 1.4 % (0-5); GRANULOCYTE % 68.6 % (42.2-75.2); MEAN CORPUSCULAR HGB 30.3 PG (27.0-31.0); MEAN CORPUSCULAR HGB CONC 33.4 G/DL (33.0-37.0); MEAN CORPUSCULAR VOLUME 90.6 FL (80.0-94.0); MEAN PLATELET VOLUME 7.9 FL (7.4-10.4); PLATELET COUNT 277 /CUMM (130-400); RBC DISTRIBUTION WIDTH 13.4 % (11.5-14.5); RED BLOOD CELL CT 3.97 /CUMM (4.70-6.10); WHITE BLOOD CELL COUNT 7.6 /CUMM (4.8-10.8)
--- NOTE | 2017-04-25 10:35 | PN- Att Addend ---
Attending Addendum Attending Brief Note Patient seen and examined. 56-year-old with diabetes and hypertension who is here after thermal injury to bilateral soles of feet in the setting of diabetic neuropathy who was seen by the wound care nurse and debrided at the bedside. He had a high white count with cellulitic changes and initially was started on Vanco ceftaz. I think now I can safely narrow down the coverage to IV Unasyn while following the cultures closely. I'm worried that he is getting dehydrated , the BUN and creatinine had jumped up today. I will give him IV fluids 1 bag and follow this closely. Watch continued use of lisinopril if the BUN and creatinine continue to rise.
--- NOTE | 2017-04-25 11:10 | PN- Housestaff ---
Subjective Follow-up For: Cellulitis bilateral lower extremities associated with a burn injury Subjective: Patient was seen and examined this morning, alert oriented, no acute distress. Reported some pain in bilateral feet, denied fever or chills. Patient reported dizziness. Not out of bed yet because he is minimal weightbearing. Will change antibiotic to IV Unasyn. Will give 1 bag of normal saline 75 mL/h, patient was encouraged to increase oral intake. Review of Systems Constitutional: Reports: see HPI. Objective Last 24 Hrs of Vital Signs/I&O Vital Signs Date Time Temp Pulse Resp B/P B/P Pulse O2 O2 Flow FiO2 Mean Ox Delivery Rate 04/25 0910 72 110/62 04/25 0644 98.0 70 20 108/64 93 Room Air 04/24 2234 98.4 83 18 126/78 96 Room Air 04/24 1342 98.4 82 18 124/78 96 Room Air Room Air Intake & Output 04/25 1600 04/25 0800 04/25 0000 Intake Total 480 1160 Output Total Balance 480 1160 Intake, IV 200 Intake, Oral 480 960 Physical Exam General Appearance: Alert, Oriented X3, Cooperative, No Acute Distress Skin: No Rashes Skin Temp/Moisture Exam: Warm/Dry Cardiovascular: Regular Rate, Normal S1, Normal S2, No Murmurs Lungs: Clear to Auscultation, Normal Air Movement Abdomen: Normal Bowel Sounds, Soft, No Tenderness, No Hepatospenomegaly, No Masses Neurological: Normal Speech, Strength at 5/5 X4 Ext, Normal Tone, Sensation Intact, Cranial Nerves 3-12 NL, Reflexes 2+ Extremities: No Clubbing, No Cyanosis, No Edema, Normal Pulses, erythema improved significantly bilaterally Assessment/Plan Assessment: 54-year-old gentleman was admitted yesterday for soft tissue infection of lower extremities which was preceded by deep thermal skin damage. #1 soft tissue skin infection: Considering his significant history of diabetes and steps and severity of his Skin damage, we found is prudent to start the patient on broad-spectrum antibiotic coverage including proper coverage for pseudomonal infection. * Will switch antibiotic to Unasyn * Discontinue IV vancomycin and ceftaz * Podiatry consultation was obtained, thanks for recommendation * Continue daily SSD and Xeroform and a dry sterile dressing * Outpatient follow-up at the wound center next May [address] Rose * Ambulate as tolerated in surgical shoes * Blood culture is negative so far * Pain management #2 history of nicotine and EtOH dependence: Not required any when necessary Ativan, persistently score low pain CIWA scale. Continue daily nicotine patch. #3 diabetes: Continue 20 units Levemir at bedtime and high-dose insulin sliding scale pre-meals and carbohydrate consistent diet; fingersticks 3 times a day. #4 history of hypertension: * Discontinue lisinopril 10 mg by mouth daily given elevated BUN/creatinine * Will give 1 bag of normal saline running at 75 mL/h * Repeat BMP in a.m. Problem List: 1. Cellulitis 2. Superficial burn of foot 3. Cellulitis of both feet Pain Ratin Pain Location: BL LE Pain Goal: Pain 4 or less Pain Plan: Severe pain pathway Tomorrow's Labs & Rationales: BMP
--- NOTE | 2017-04-25 11:10 | PN- Housestaff ---
Assessment/Plan Assessment: 54-year-old gentleman was admitted yesterday for soft tissue infection of lower extremities which was preceded by deep thermal skin damage. #1 soft tissue skin infection: Considering his significant history of diabetes and steps and severity of his Skin damage, we found is prudent to start the patient on broad-spectrum antibiotic coverage including proper coverage for pseudomonal infection. * Continue IV vancomycin 1000 mg twice a day #day 1 * Continue IV Fortaz 800 mg 3 times a day 1 * Daily wound dressing * Pending assessment by Dr. Rose possible need for bedsides debridements * Follow microbiology results * Pain management * Elevate the affected limb. #2 history of nicotine and EtOH dependence: Not required any when necessary Ativan, persistently score low pain CIWA scale. Continue daily nicotine patch. #3 diabetes: Continue 20 units Levemir at bedtime and switch to high-dose insulin sliding scale pre-meals and carbohydrate consistent diet; fingersticks 3 times a day #4 history of hypertension: Stable; continue lisinopril 10 mg by mouth daily
--- NOTE | 2017-04-25 13:04 | Cons- Podiatry ---
General Information and HPI Consulting Request Date of Consult: 04/25/17 Requested By: ISIDORO CHRISTOPHER MD History of Present Illness: Mr. Miranda is a 56-year-old diabetic male with an extensive past medical history, including peripheral diabetic neuropathy. The patient presented with a chief complaint of peeling skin from the bottoms of both of his feet, fever, weakness and poor intake. The patient states that last Wednesday he was barefoot while walking on a hot patio surface. Allergies/Medications Allergies: Coded Allergies: NO KNOWN ALLERGIES (11/18/14) Home Med List: Duloxetine HCl 30 MG CAPSULE. 3 CAP PO DAILY MENTAL HEALTH (Reported) Gabapentin 300 MG CAPSULE 2 CAP PO TID PAIN (Reported) Insulin Glargine,Hum.rec.anlog (Lantus Solostar) 100 UNIT/ML (3 ML) INSULN.PEN 20 UNIT SC QPM DM (Reported) Insulin Glargine,Hum.rec.anlog (Lantus Solostar) 100 UNIT/1 ML INSULN.PEN 28 UNIT SC QPM DIABETES (Reported) Lisinopril 10 MG TABLET 1 TAB PO DAILY HEART (Reported) Metformin HCl 500 MG TABLET 1 TAB PO BID DIABETES (Reported) Mirtazapine (Remeron) 30 MG TABLET 1 TAB PO QPM SLEEP (Reported) Quetiapine Fumarate 100 MG TABLET 1 TAB PO QPM SLEEP (Reported) Sitagliptin Phos/Metformin HCl (Janumet 50-1,000 MG Tablet) 1 EACH TABLET 1 TAB PO BID DIABETES (Reported) Sitagliptin Phosphate (Januvia) 100 MG TABLET 1 TAB PO DAILY DIABETES ( Reported) Past History Medical History Blood Transfusion Hx: No Neurological: NEUROPATHY EENT: NONE Cardiovascular: NONE Respiratory: NONE Gastrointestinal: NONE Hepatic: NONE Renal: NONE Musculoskeletal: NONE Psychiatric: alcohol dependence, depression Endocrine: IDDM Cancer(s): NONE Surgical History Pertinent Surgical History: non-contributory Psychosocial History Where Do You Live? Home Who Do You Live With? self Services at Home: None Primary Language: [place] Smoking Status: Current Everyday Smoker ETOH Use: occasional use Illicit Drug Use: denies illicit drug use Living Will? yes Functional Ability ADLs Independent: dressing, eating, toileting, bathing. Ambulation: cane IADLs Independent: shopping, housework, finances, food prep, telephone, transportation , medication admin. Employment History Employment: Disability Review of Systems Review of Systems: Unremarkable except for that noted in the supine position on this Exam & Diagnostic Data Vital Signs and I&O Vital Signs Date Time Temp Pulse Resp B/P B/P Pulse O2 O2 Flow FiO2 Mean Ox Delivery Rate 04/25 0910 72 110/62 04/25 0644 98.0 70 20 108/64 93 Room Air 04/24 2234 98.4 83 18 126/78 96 Room Air 04/24 1342 98.4 82 18 124/78 96 Room Air Room Air Intake & Output 04/25 1600 04/25 0800 04/25 0000 04/24 1600 04/24 0800 04/24 0000 Intake Total 480 1417 935 2392 1220 Output Total 600 Balance 480 1313 469 4971 620 Intake, IV 200 900 500 Intake, Oral 480 960 800 240 720 Number 0 1 Bowel Movements Output, Urine 600 Patient 230 lb Weight Weight Reported by Patient Measurement Method Physical Exam: De-roofed serous bulla noted bilateral plantar forefoot with small areas of necrotic slough noted. No probing or undermining identified. Improving cellulitis noted. Minimal serous drainage identified. No crepitus or fluctuance identified. Dense peripheral neuropathy noted in a moccasin type distribution to the feet bilaterally. Assessment/Plan Assessment/Plan Cellulitis bilateral lower extremities associated with a burn injury. Continue daily SSD and Xeroform and a dry sterile dressing. Will follow-up with Fernando Ruth as an outpatient in the wound center next Wednesday, May 03. Ambulate as tolerated in surgical shoes. Consult Acknowledgment - Thank you for your consult request. Attending MD Review Statement Attending Statement Attending MD Statement: examined this patient
[2017-04-25 14:42] VITALS: BP 164/100
[2017-04-25 14:58] VITALS: BP 164/100
--- NOTE | 2017-04-25 16:15 | NUR ---
AT THIS TIME; PT BLOOD PRESSURE 160/100, PT DENIES ANY PAIN OR DISCOMFORT, PER PT, "I FEEL TOTALLY FINE", RESIDENTIAL REAL ESTATE AGENT TEJAS #156 AWARE, PER RESIDENTIAL REAL ESTATE AGENT SHE WILL ORDER SOMETHING, NO FIRTHER ORDERS AT THIS TIME, SAFETY MAINTAINED, NEEDS WITHIN REACH
[2017-04-25 22:30] VITALS: BP 148/82
[2017-04-26 06:22] VITALS: BP 121/67
--- NOTE | 2017-04-26 08:27 | PN- Housestaff ---
YONG SORENSEN 04/26/17 0827: Subjective Follow-up For: Bilateral foot cellulitis with ulcers Acute kidney injury Dizziness Complaints: pain scale (0-10) Subjective: Patient was seen and examined this morning. He is alert awake and oriented to time place and person. No acute events noticed overnight. He denied any fever, chills, pain bilateral foot. However patient complains of dizziness. On IV fluids now Denies any chest pain, palpitations, headache, weakness, sensory changes, nausea , vomiting, abdominal pain. Vitals remained stable. Afebrile, heart rate 76, respiratory rate 20, blood pressure 128/67, saturating at 95 on room air Review of Systems Constitutional: Denies: see HPI. Objective Last 24 Hrs of Vital Signs/I&O Vital Signs Date Time Temp Pulse Resp B/P B/P Pulse O2 O2 Flow FiO2 Mean Ox Delivery Rate 04/26 1420 98.0 83 20 160/100 100 Room Air 04/26 1054 97.5 77 20 148/90 95 Room Air 04/26 1029 76 124/68 04/26 0622 97.4 76 20 121/67 95 04/25 2230 98.0 76 20 148/82 94 Room Air 04/25 2034 83 168/90 04/25 1700 85 160/100 04/25 1458 164/100 04/25 1442 99.1 85 20 164/100 93 Room Air Intake & Output 04/26 1600 04/26 0800 04/26 0000 Intake Total 450 1200 Output Total Balance 450 1200 Intake, IV 250 250 Intake, Oral 200 950 Physical Exam General Appearance: Alert, Oriented X3, Cooperative, No Acute Distress Skin: No Rashes, No Breakdown, b/l foot ulcers and redness. left foot ulcer with drainage HEENT: Atraumatic, PERRLA, EOMI, Mucous Membr. moist/pink Neck: Supple, No JVD Lymphatic: Cervical nl Cardiovascular: Normal S1, Normal S2 Lungs: Normal Air Movement Abdomen: Normal Bowel Sounds, Soft, No Tenderness Extremities: No Clubbing, No Cyanosis, No Edema Vascular: Pulses Symmetrical Current Medications: Current Medications Sig/Dale Start time Last Medication Dose Route Stop Time Status Admin Acetaminophen 650 MG .STK-MED ONE 04/25 2037 DC PO 04/25 2038 Acetaminophen 650 MG Q6P PRN 04/23 1430 AC 04/25 PO 2036 Acetaminophen/ 1 TAB Q6P PRN 04/23 1430 AC 04/25 Hydrocodone Bitart PO 1736 Amlodipine Besylate 5 MG DAILY 04/26 1000 AC 04/26 PO 1029 Amlodipine Besylate 5 MG ONCE ONE 04/25 1630 DC 04/25 PO 04/25 1631 1700 Ampicillin Sodium/ 3,000 MG Q6 04/25 1200 AC 04/26 Sulbactam Sodium IV 1139 Sodium Chloride 100 ML Duloxetine HCl 90 MG DAILY 04/23 1418 AC 04/26 PO 1017 Gabapentin 600 MG TID 04/23 1600 AC 04/26 PO 1017 Heparin Sodium 5,000 UNIT Q8 04/23 1416 AC 04/26 (Porcine) SC 1351 Hydralazine HCl 5 MG ONCE ONE 04/25 2000 DC 04/25 PO 04/25 Hydralazine HCl 2.5 MG ONCE ONE 04/25 1945 CAN IV 04/25 194 Insulin Aspart 0 TIDAC 04/24 0800 AC 04/26 SC 1234 Insulin Detemir 20 UNITS QPM 04/23 2200 AC 04/25 SC 2128 Lorazepam 2 MG Q2P PRN 04/23 1430 AC PO Lorazepam 1 MG Q2P PRN 04/23 1430 AC PO Mirtazapine 30 MG QPM 04/23 2200 AC 04/25 PO 2128 Morphine Sulfate 2 MG Q4P PRN 04/23 1430 AC IV Nicotine 14 MG 1730 04/24 1730 AC 04/25 TOP 1736 Polyethylene Glycol 17 GM DAILY NEEDED PRN 04/23 1430 04/24 PO 0847 Quetiapine Fumarate 100 MG QPM 04/23 2200 04/25 PO 2128 Silver Sulfadiazine 1 RHIANNON DAILY NEEDED PRN 04/23 1530 AC TOP Sodium Chloride 1,000 ML ONCE ONE 04/26 0945 AC 04/26 IV 04/26 2304 1019 Sodium Chloride 1,000 ML ONCE ONE 04/25 1100 DC 04/25 IV 04/26 0019 1106 Trimethobenzamide HCl 200 MG 4 TIMES/DAY PRN 04/23 1430 04/23 IM 1559 Last 24 Hrs of Lab/Gene Results Last 24 Hrs of Labs/Mics: Laboratory Tests 04/26/17 0640: Anion Gap 8, Estimated GFR 48 L, BUN/Creatinine Ratio 18.7 Assessment/Plan Assessment: 54-year-old gentleman was admitted for soft tissue infection of lower extremities which was preceded by deep thermal skin damage. #1 b/l soft tissue skin infection: Noted fever, chills, leukocytosis and erythema with bilateral feet ulcers on presentation. Considering his significant history of diabetes and steps and severity of his Skin damage, we found is prudent to start the patient on broad- spectrum antibiotic coverage including proper coverage for pseudomonal infection. Antibiotics narrowed on day 3 after improvement of cellulitis * switched antibiotic to Unasyn day 4 today * Discontinued IV vancomycin and ceftaz * Podiatry consultation was obtained, thanks for recommendation * Continue daily SSD and Xeroform and a dry sterile dressing * Outpatient follow-up at the wound center next May [address] Rose * Ambulate as tolerated in surgical shoes * Blood culture is negative so far * Local wound care as directed by wound care nurse * No pain at present, if pain use tylenol for mild pain, vicodin for moderate, morphine for severe pain * CBCs improved 8000 from 16,000 since admission * Remained afebrile with normal leukocyte count 2. Starvation ketosis * Poor PO intake over the last 2 days before coming to hospital with mild hyperglycemia to 225 with normal AG and positive acetone suggestive of starvation ketosis * Patient received 3 L normal saline in the ED, * received banana bag * Tigan PRN nausea * Encourage oral intake and CC2 diet 3. Diabetes mellitus * On lantus, janumet and metformin at home which are currently placed on hold * Accuchecks TIDAC/HS * NSS TIDAC and 20 U SC levemir QPM * Continue gabapentin 600 mg PO TID for peripheral neuropathy 4. Uncontrolled HTN * BP on admission elevated to 198/100, currently at 168/84 * Vital signs Q shift * home lisinopril 10 mg PO daily on hold for now because of acute kidney injury * Patient was started on amlodipine 5 mg daily * We'll adjust blood pressure medication based on his creatinine at the time of discharge. 5. ETOH abuse * Patient endorsed 10 alcoholic beverages/week for the last 35 years * CIWA scoring * Ativan PRN per CIWA scoring * Encourage alcohol cessation * Banana bag x 1 then consider starting * MV, thiamine, folate 6. Depression/anxiety * Continue seroquel 100 mg PO QPM * Cymbalta 90 mg PO daily 7. Tobacco use * Tobacco cessation counseling provided * Nicotine patch 14 mg top daily 8. Dizziness Patient reports ongoing dizziness since admission. Denied any syncopal events. He denied any chest pain, palpitations, headache, weakness. * Possibly dehydration * Will check orthostatic vitals * Supportive management for now DNR/DNI Pain pathway CC2 diet Lovenox for DVT prophylaxis Problem List: 1. Cellulitis of both feet Pain Ratin Pain Location: n/a Pain Goal: Remain pain free Pain Plan: tylinol Tomorrow's Labs & Rationales: bep in the setting of acute kidney injury ASHWIN COONEY,ISIDORO 04/26/17 1243: Attending MD Review Statement Attending Statement Attending MD Statement: examined this patient, discuss w/resident/PA/SECTIONIZER, agreed w/resident/PA/SECTIONIZER, reviewed EMR data (avail), discussed with nursing, discussed with case mgmt, reviewed images, amended to note Attending Assessment/Plan: Patient seen and examined, overall feeling much better. Leukocytosis has improved. Patient afebrile and 18 on the left lower extremity has improved. Patient was seen by podiatry and outpatient follow-up was recommended. Patient denies any pain. Blood sugars are stable. He did complain of some dizziness. His creatinine has bumped up over the weekend and he was started on IV fluids. Creatinine did not improve and patient remains on IV fluids. At this point he's treated with IV Unasyn. PT is recommending rehabilitation for him but patient is reluctant. Plan is to continue IV fluids 1 more day, follow-up on creatinine. If normalized and he can likely be switched to oral antibiotics and discharge. Disposition planning needs to be determined. DVT px; hep sq.
[2017-04-26 10:54] VITALS: BP 148/90
[2017-04-26 14:20] VITALS: BP 160/100
[2017-04-26] MEDS ORDERED: AUGMENTIN 875-1 EACH PO (14:40)
--- NOTE | 2017-04-26 14:46 | Patient Discharge Instructions ---
Discharge Instructions General Discharge Information You were seen/treated for: Bilateral foot cellulitis and ulcers uncontrolled hypertension You had these procedures: none Other wound care: Continue daily SSD and Xeroform and a dry sterile dressing. Special Instructions: Continue daily SSD and Xeroform and a dry sterile dressing. follow-up with dr. barnes as an outpatient in the wound center. Ambulate as tolerated in surgical shoes. Please follow-up with your primary care physician in one week after discharge. lisinopril dose increased to 20 mg from 10mg. follow up your pcp in one week and follow up with your blood pressure. come to er if chest pain, headache, dizzy from uncontrolled BP. Diet Recommended Diet: consistent carbohydrate diet Activity Activity Self Limited: Yes Acute Coronary Syndrome Inclusion Criteria At DC or during hospital stay patient has or had the following: ACS DIAGNOSIS No Discharge Core Measures Meds if any: Prescribed or Continued at Discharge Meds if any: NOT Prescribed or Continued at Discharge Congestive Heart Failure Inclusion Criteria At DC or during hospital stay patient has or had the following: CHF DIAGNOSIS No Discharge Core Measures Meds if any: Prescribed or Continued at Discharge Meds if any: NOT Prescribed or Continued at Discharge Cerebrovascular accident Inclusion Criteria At DC or during hospital stay patient has or had the following: CVA/TIA Diagnosis No Discharge Core Measures Meds if any: Prescribed or Continued at Discharge Meds if any: NOT Prescribed or Continued at Discharge Venous thromboembolism Inclusion Criteria VTE Diagnosis No VTE Type NONE VTE Confirmed by (Test) NONE Discharge Core Measures - Per Current guidelines, there needs to be overlap - treatment for the first 5 days of Warfarin therapy. - If discharged on Warfarin prior to 5 days of - overlap therapy, the patient will need to be - assessed for post discharge needs including - *Post discharge parental anticoagulation - *Warfarin and/or parental anticoagulation education - *Follow up date to check INR post discharge At least 5 days overlap therapy as Inpatient No Meds if any: Prescribed or Continued at Discharge Note: Overlap Therapy is Warfarin and Anticoagulant Meds if any: NOT Prescribed or Continued at Discharge
--- NOTE | 2017-04-26 19:59 | NUR ---
AT THIS TIME; PT VITAL SIGNS TAKEN PER ORDERS, BP 160/98, THIS RN TEXT PAGE LAW SECRETARY #[id number] AND PAGED LAW SECRETARY, AWAITING RESPONSE
[2017-04-26 20:00] VITALS: BP 160/98
--- NOTE | 2017-04-26 20:06 | NUR ---
NURSING NOTE; BATCH TANK CONTROLLER #[id number] AWARE OF PT BLOOD PRESSURE, PER BATCH TANK CONTROLLER WILL D/C PT FLUIDS AND THIS RN IS TO GIVE A DOSE OF HYDRALAZINE AT BEDTIME, NO FURTHER ORDERS, SAFETY MAINTAINED, NEEDS WITHIN REACH
[2017-04-26 21:49] VITALS: BP 162/92
[2017-04-27] VITALS (7 sets, daily range): BP systolic 138–184; BP diastolic 74–102
--- NOTE | 2017-04-27 00:30 | NUR ---
PATIENT C/O LIGHT HEADEDNESS. PT DENIES CP, NAUSEA, VOMITTING OR ANY OTHER DISCOMFORT. BP 138/74, PULSE 74, O2 92%, TEMP 98.1, RESP 16. NO DISTRESS NOTED. MD TEJAS JONES WAS MADE AWARE. WILL CONTINUE TO MONITOR.
--- NOTE | 2017-04-27 02:00 | NUR ---
THIS RN WAS CHECKING ON PT. PATIENT EXPRESSES SOME RELIEF STATING "I FEEL BETTER NOW". PT RESTING COMFORTABLY IN BED. WILL CONTINUE TO MONITOR.
--- NOTE | 2017-04-27 07:39 | NUR ---
LATE ENTRY 04/27/17 @ 0420. PATIENT BP WAS 180/94. PATIENT DENIES HEADACHE OR ANY OTHER DISCOMFOR. NO DISTRESS WAS NOTED. MD. TEJAS JONES WAS MADE AWARE. HYDRALAZINE PO WAS ORDERED AND ADMINISTERED. AT 0545 BP WAS RE-CHECKED AND WAS 170/94. MD TEJAS JONES WAS MADE AWARE. BP WAS TO BE RE-CHECKED IN AN HOUR AND NO FURTHER ORDERES AT THIS TIME. AROUND 0710 BP 160/88. MD BEACH WAS MADE AWARE. THE INCOMING RN WAS MADE AWARE AND WILL PRESUME CARE.
--- NOTE | 2017-04-27 07:41 | PN- Student ---
Subjective Subjective: This morning Mr. Miranda complains of a slight headache during the night. He denies any pain in his feet but states that he has not been ambulating. He denies any chest pain, breathing difficulties, fever or chills, abdominal pain, or urinary difficulties. He does, however, report that he has not had a bowel movement since wednesday. Objective Objective: Vital Signs Date Time Temp Pulse Resp B/P B/P Pulse O2 O2 Flow FiO2 Mean Ox Delivery Rate 04/27 0439 180/94 04/27 0407 97.9 77 20 157/89 94 Room Air 04/27 0000 98.1 74 16 138/74 04/27 0000 98.1 74 16 138/74 92 Room Air 04/26 2149 98.2 84 20 162/92 95 Room Air 04/26 2107 84 162/92 04/26 2000 97.5 86 18 160/98 96 Room Air 04/26 1631 84 160/92 04/26 1420 98.0 83 20 160/100 100 Room Air 04/26 1054 97.5 77 20 148/90 95 Room Air 04/26 1029 76 124/68 Intake & Output 04/27 0800 04/27 0000 04/26 1600 Intake Total 1020 1375 Output Total Balance 1020 1375 Intake, IV 120 375 Intake, Oral 900 1000 PE: General Appearance: AAO X3, Cooperative, No Acute Distress Skin: No Rashes, No Breakdown, b/l foot ulcers and redness which has receded since yesterday. left foot ulcer with drainage HEENT: Atraumatic, PERRLA, membranes moist/pink Neck: Supple, No JVD, no lymphadenopathy or thyromegaly, trachea is midline Cardiovascular: Normal S1 and S2, RRR, no murmurs or rubs heard Lungs: equal chest rise bilaterally, vesicular sounds heard throughout all padron, good air movement Abdomen: Normal Bowel Sounds, Soft and non-tender to palpation, no organomegaly noted Extremities: No Clubbing, No Cyanosis, No Edema Results Results: Laboratory Tests 04/27/17 0618: Anion Gap 4 L, Estimated GFR > 60, BUN/Creatinine Ratio 21.7 04/26/17 0640: Anion Gap 8, Estimated GFR 48 L, BUN/Creatinine Ratio 18.7 04/25/17 0710: Anion Gap 3 L, Estimated GFR 48 L, BUN/Creatinine Ratio 21.3, Hemoglobin A1c 7.9 H, CBC w Diff NO MAN DIFF REQ, RBC 3.97 L, MCV 90.6, MCH 30.3, RDW 13.4, MPV 7.9, Gran % 68.6, Lymphocytes % 20.4 L, Monocytes % 9.2, Eosinophils % 1.4, Basophils % 0.4, Absolute Granulocytes 5.2, Absolute Lymphocytes 1.6, Absolute Monocytes 0.7 H, Absolute Eosinophils 0.1, Absolute Basophils 0, PUBS MCHC 33.4 Assessment/Plan Assessment: Mr. Miranda is a 56 yo white male with PMH of anxiety, depression w/ suicide attempt in 2009, type 1 DM w/ peripheral neuropathy (on gabapentin), HTN, and Hyperlipidemia. He was admitted on 04/23/2017 for bilateral thermal injury to the soles of his feet resulting in cellulitis. In the ED his vitals were temp-97.5, HR-89, RR-16, BP-189/100, SpO2- 98% on room air. His labs were WBC-16.2, H/H- 14.9/43.9, Na-135, K-4.1, HCO3-27, BUN-17, Refinery Operator Helper-0.7, T.Bili-2, glucose-225, lactic acid-1.7. Today he was feeling sleepy during examination however he was alert, oriented, and cooperative. He reported a slight headache overnight but did not report any pain in his feet or any other symptoms. His vitals were stable except for elevated BP and his labs today show resolution of his SHEILA. Current Medications Sig/Dale Start time Last Medication Dose Route Stop Time Status Admin Acetaminophen 650 MG .STK-MED ONE 04/26 1835 DC PO 04/26 1836 Acetaminophen 650 MG Q6P PRN 04/23 1430 DCD 04/26 PO 1835 Acetaminophen/ 1 TAB Q6P PRN 04/23 1430 DCD 04/25 Hydrocodone Bitart PO 1736 Amlodipine Besylate 10 MG DAILY 04/27 1000 DCD 04/27 PO 0832 Amlodipine Besylate 5 MG DAILY 04/26 1000 DC 04/26 PO 1029 Ampicillin Sodium/ 3,000 MG Q6 04/25 1200 DCD 04/27 Sulbactam Sodium IV 1100 Sodium Chloride 100 ML Bisacodyl 5 MG DAILY 04/27 1000 DCD 04/27 PO 1100 Duloxetine HCl 90 MG DAILY 04/23 1418 DCD 04/27 PO 0832 Gabapentin 600 MG TID 04/23 1600 DCD 04/27 PO 1548 Heparin Sodium 5,000 UNIT Q8 04/23 1416 DCD 04/27 (Porcine) SC 1339 Hydralazine HCl 10 MG TID PRN 04/26 1600 DCD 04/27 PO 1406 Insulin Aspart 0 TIDAC 04/24 0800 DCD 04/27 SC 1219 Insulin Detemir 20 UNITS QPM 04/23 2200 DCD 04/26 SC 2107 Lorazepam 2 MG Q2P PRN 04/23 1430 DCD PO Lorazepam 1 MG Q2P PRN 04/23 1430 DCD PO Melatonin 5 MG .STK-MED ONE 04/27 0134 DC PO 04/27 0135 Mirtazapine 30 MG QPM 04/23 2200 DCD 04/26 PO 2107 Morphine Sulfate 2 MG Q4P PRN 04/23 1430 DCD IV Nicotine 14 MG 1730 04/24 1730 DCD 04/26 TOP 1758 Polyethylene Glycol 17 GM DAILY 04/27 1000 DCD 04/27 PO 0832 Polyethylene Glycol 17 GM DAILY NEEDED PRN 04/23 1430 DCD 04/27 PO 0109 Quetiapine Fumarate 100 MG QPM 04/23 2200 DCD 04/26 PO 2107 Silver Sulfadiazine 1 RHIANNON DAILY NEEDED PRN 04/23 1530 DCD TOP Sodium Chloride 1,000 ML ONCE ONE 04/26 0945 DC 04/26 IV 04/26 2304 1019 Trimethobenzamide HCl 200 MG 4 TIMES/DAY PRN 04/23 1430 DCD 04/23 IM 1559 Plan: Patient admitted to general medicine floor for management. Will discharge today with HTN medication changes as well as recommendation to follow up with PCP regarding HTN management. 1. soft tissue skin infection: Considering his significant history of diabetes and steps and severity of his Skin damage, we found is prudent to start the patient on broad-spectrum antibiotic coverage including proper coverage for pseudomonal infection. -switched antibiotic to Unasyn on day 5 today. Will discharge today on oral Augmentin twice a day for 10 more days to complete 14 day course. -Discontinued IV vancomycin and ceftaz -Podiatry consultation was obtained, thanks for recommendation -Continue daily SSD and Xeroform and a dry sterile dressing -Outpatient follow-up with wound center next May [address] Rose -Ambulate as tolerated in surgical shoes -Blood culture is negative thus far -Continue Pain management 2. Alcohol and Nicotine dependence: -Not required any when necessary Ativan -persistently scoring low pain CIWA scale -Continue daily nicotine patch 3. DM: -Continue 20 units Levemir at bedtime and high-dose insulin sliding scale pre- meals and carbohydrate consistent diet -fingersticks 3 times a day. 4. HTN: -Begin lisinopril 20 mg by mouth daily upon discharge, also started amlodipine 5mg daily -SHEILA has resolved. todays Creatinine was 1.2. -Repeat BMP in a.m. Code status: DNR/DNI Diet: CC2 diet DVT prophylaxis: SQ Lovenox
--- NOTE | 2017-04-27 08:03 | PN- Housestaff ---
See Addendum Subjective Follow-up For: Bilateral foot cellulitis with ulcers Acute kidney injury- resolved Dizziness uncontrolled htn Complaints: pain scale (0-10) Subjective: Patient was seen and examined this morning. He is alert awake and oriented to time place and person. No acute events noticed overnight. He denied any fever, chills, pain bilateral foot. However patient complains of being tired this morning. Denies any chest pain, palpitations, headache, weakness, sensory changes, nausea , vomiting, abdominal pain. Vitals remained stable. Afebrile, heart rate 76, respiratory rate 20, blood pressure 168/88, saturating at 95 on room air Review of Systems Constitutional: Reports: no symptoms. Objective Last 24 Hrs of Vital Signs/I&O Vital Signs Date Time Temp Pulse Resp B/P B/P Pulse O2 O2 Flow FiO2 Mean Ox Delivery Rate 04/27 0832 80 160/88 04/27 0730 80 160/88 04/27 0439 180/94 04/27 0407 97.9 77 20 157/89 94 Room Air 04/27 0000 98.1 74 16 138/74 04/27 0000 98.1 74 16 138/74 92 Room Air 04/26 2149 98.2 84 20 162/92 95 Room Air 04/26 2107 84 162/92 04/26 2000 97.5 86 18 160/98 96 Room Air 04/26 1631 84 160/92 04/26 1420 98.0 83 20 160/100 100 Room Air Intake & Output 04/27 1600 04/27 0800 04/27 0000 Intake Total 1020 Output Total Balance 1020 Intake, IV 120 Intake, Oral 900 Physical Exam General Appearance: Alert, Oriented X3, Cooperative, No Acute Distress Skin: b/l foot ulcers HEENT: Atraumatic, PERRLA, EOMI, Mucous Membr. moist/pink Neck: Supple, No JVD Lymphatic: Cervical nl Cardiovascular: Normal S1, Normal S2 Lungs: Normal Air Movement Abdomen: Normal Bowel Sounds, Soft, No Tenderness Extremities: No Clubbing, No Cyanosis, No Edema Current Medications: Current Medications Sig/Dale Start time Last Medication Dose Route Stop Time Status Admin Acetaminophen 650 MG .STK-MED ONE 04/26 183 DC PO 04/26 183 Acetaminophen 650 MG Q6P PRN 04/23 1430 AC 04/26 PO 1835 Acetaminophen/ 1 TAB Q6P PRN 04/23 1430 AC 04/25 Hydrocodone Bitart PO 1736 Amlodipine Besylate 10 MG DAILY 04/27 1000 AC 04/27 PO 0832 Amlodipine Besylate 5 MG DAILY 04/26 1000 DC 04/26 PO 1029 Ampicillin Sodium/ 3,000 MG Q6 04/25 1200 AC 04/27 Sulbactam Sodium IV 1100 Sodium Chloride 100 ML Bisacodyl 5 MG DAILY 04/27 1000 AC 04/27 PO 1100 Duloxetine HCl 90 MG DAILY 04/23 1418 AC 04/27 PO 0832 Gabapentin 600 MG TID 04/23 1600 AC 04/27 PO 0832 Heparin Sodium 5,000 UNIT Q8 04/23 1416 AC 04/27 (Porcine) SC 0602 Hydralazine HCl 10 MG TID PRN 04/26 1600 AC 04/27 PO 0439 Insulin Aspart 0 TIDAC 04/24 0800 AC 04/26 SC 1758 Insulin Detemir 20 UNITS QPM 04/23 2200 AC 04/26 SC 2107 Lorazepam 2 MG Q2P PRN 04/23 1430 AC PO Lorazepam 1 MG Q2P PRN 04/23 1430 AC PO Melatonin 5 MG .STK-MED ONE 04/27 0134 DC PO 04/27 0135 Mirtazapine 30 MG QPM 04/23 2200 AC 04/26 PO 2107 Morphine Sulfate 2 MG Q4P PRN 04/23 1430 AC IV Nicotine 14 MG 1730 04/24 1730 AC 04/26 TOP 1758 Polyethylene Glycol 17 GM DAILY 04/27 1000 AC 04/27 PO 0832 Polyethylene Glycol 17 GM DAILY NEEDED PRN 04/23 1430 AC 04/27 PO 0109 Quetiapine Fumarate 100 MG QPM 04/23 2200 AC 04/26 PO 2107 Silver Sulfadiazine 1 RHIANNON DAILY NEEDED PRN 04/23 1530 AC TOP Sodium Chloride 1,000 ML ONCE ONE 04/26 0945 DC 04/26 IV 04/26 2304 1019 Trimethobenzamide HCl 200 MG 4 TIMES/DAY PRN 04/23 1430 AC 04/23 IM 1559 Last 24 Hrs of Lab/Gene Results Last 24 Hrs of Labs/Mics: Laboratory Tests 04/27/17 0618: Anion Gap 4 L, Estimated GFR > 60, BUN/Creatinine Ratio 21.7 Assessment/Plan Assessment: 54-year-old gentleman was admitted for soft tissue infection of lower extremities which was preceded by deep thermal skin damage. #1 b/l soft tissue skin infection: Noted fever, chills, leukocytosis and erythema with bilateral feet ulcers on presentation. Considering his significant history of diabetes and steps and severity of his Skin damage, we found is prudent to start the patient on broad- spectrum antibiotic coverage including proper coverage for pseudomonal infection. Antibiotics narrowed on day 3 after improvement of cellulitis * switched antibiotic to Unasyn day 5 today, planning to discharge him today on oral Augmentin twice a day for 10 more days to complete 14 day course for cellulitis * Discontinued IV vancomycin and ceftaz * Podiatry consultation was obtained, thanks for recommendation * Continue daily SSD and Xeroform and a dry sterile dressing * Outpatient follow-up at the wound center next May [address] Rose * Ambulate as tolerated in surgical shoes * Blood culture is negative so far * Local wound care as directed by wound care nurse * No pain at present, if pain use tylenol for mild pain, vicodin for moderate, morphine for severe pain * CBCs improved 8000 from 16,000 since admission * Remained afebrile with normal leukocyte count wound care Patient was noted to have deep partial-thickness wounds to the plantar surface of bilateral lower extremities. * Left great toe 3x 3.8 cm and left plantar surface at the ball of foot 7x 0.7 cm overly dry desiccated base with periwound dried. * Right great toe 2.2x 3.2 cm open wound-right ball of foot plantar surface 6.7 into 7.5 cm exposed the dermis a dry desiccated piece-cellulitic changes extending up the dorsal aspect of foot, warmth to touch. * Nonweight bearing * heel touch only * cleanse all the wounds with normal saline SSD ointment, Xeroform daily and as required * Patient to follow-up with enterprise architect manager after discharge 2. Starvation ketosis * Poor PO intake over the last 2 days before coming to hospital with mild hyperglycemia to 225 with normal AG and positive acetone suggestive of starvation ketosis * Patient received 3 L normal saline in the ED, * received banana bag * Tigan PRN nausea * Encourage oral intake and CC2 diet 3. Diabetes mellitus * On lantus, janumet and metformin at home which are currently placed on hold * Accuchecks TIDAC/HS * NSS TIDAC and 20 U SC levemir QPM * Continue gabapentin 600 mg PO TID for peripheral neuropathy 4. Uncontrolled HTN * BP on admission elevated to 198/100, currently at 168/84 * Vital signs Q shift * home lisinopril 10 mg PO daily was held in the hospital because of acute kidney injury (cr 1.5). * Acute kidney injury resolved today with creatinine 1.2 today * Patient was advised to take lisinopril 20 mg daily for high blood pressure after d/c and was advised to follow-up with primary care physician to manage blood pressure further. * Patient was given hydralazine 10 mg every 8 hrs 3 times a day as required for uncontrolled hypertension * Amlodipine 10 mg per uncontrolled hypertension in the hospital 5. ETOH abuse * Patient endorsed 10 alcoholic beverages/week for the last 35 years * CIWA scoring * Ativan PRN per CIWA scoring * Encourage alcohol cessation * Banana bag x 1 then consider starting * MV, thiamine, folate 6. Depression/anxiety * Continue seroquel 100 mg PO QPM * Cymbalta 90 mg PO daily 7. Tobacco use * Tobacco cessation counseling provided * Nicotine patch 14 mg top daily 8. Dizziness Patient reports ongoing dizziness since admission. Denied any syncopal events. He denied any chest pain, palpitations, headache, weakness. * Possibly dehydration * orthostatic vitals- negative * Supportive management for now DNR/DNI Pain pathway CC2 diet Lovenox for DVT prophylaxis Problem List: 1. Cellulitis of both feet Pain Ratin Pain Location: n/a Pain Goal: Remain pain free Pain Plan: andrea Tomorrow's Labs & Rationales: none
[2017-04-27] MEDS ORDERED: AUGMENTIN 875-1 EACH PO (10:27)
[2017-04-27] MEDS ORDERED: LISINOPRIL20 M1 PO (10:27)
[2017-04-27] MEDS ORDERED: PAIN RELIEVER650 MG PO (11:36)
[2017-04-27] MEDS ORDERED: SILVADENE20 GM TOP (11:42)
--- NOTE | 2017-04-27 11:54 | Discharge Summary ---
Visit Information Visit Dates Admission Date: 04/23/17 Discharge Date: 04/27/17 Hospital Course Course Attending Physician: ASHWIN COONEY,ISIDORO Primary Care Physician: KENDALL COONEY,MIGUEL Henderson Other Care Providers: none Hospital Course: Mr. Miranda is a pleasant 56 year old male with PMH anxiety, depression, previous suicide attempt in 2009, type 1 diabetes mellitus with peripheral neuropathy on gabapentin, HTN and HLD who presented to [facility] with chief complaint of bilateral feet burn. There is no prior history of cellulitis, though patient previously experienced non-healing ulcer of his foot and was followed by Dr. Wheat for debridement. Current review of systems is significant for fever, chills, nausea and bilateral feet erythema/ulcerations. In the ED: Vital signs showed T 97.2, HR 88, RR 20, BP 190/95 and O2 saturation of 96% on RA. Labs were significant for WBC 16.2 wiht 90.2% granulocytes, H&H 14.9/43.9, Plt 277, Na 135, K 4.1, Cl 94, HCO3 27, Anion gap 14, BUN/cre 17/0.7, Glu 225, lactic acid 1.7, TBili 2, AST/ALT normal, troponin <0.01, ESR 75, CRP >9, normal amylase/lipase. Acetone positive. Patient is admitted to the general medicine floor and the following is the management: #1 b/l soft tissue skin infection: Noted fever, chills, leukocytosis and erythema with bilateral feet ulcers on presentation. Considering his significant history of diabetes and severity of his Skin damage, we found its prudent to start the patient on broad-spectrum antibiotic coverage including proper coverage for pseudomonal infection. Antibiotics ceftaz and Vanco narrowed to unasyn on day 3 after improvement of cellulitis. He was discharged home on Augmentin twice a day for 10 more days to complete 14 day course for cellulitis as he has history of diabetes mellitus. He was advised to follow Dr. Carter at wound care center on next Wednesday, . He was advised to ambulate as tolerated in the surgical shoes. Blood cultures remained negative. He was afebrile with a normal WBC count at the time of discharge. wound care Patient was noted to have deep partial-thickness wounds to the plantar surface of bilateral lower extremities. Left great toe 3x 3.8 cm and left plantar surface at the ball of foot 7x 0.7 cm overly dry desiccated base with periwound dried. Right great toe 2.2x 3.2 cm open wound-right ball of foot plantar surface 6.7 into 7.5 cm exposed the dermis a dry desiccated piece-cellulitic changes extending up the dorsal aspect of foot , warmth to touch. * Nonweight bearing * heel touch only * cleansed all the wounds with normal saline SSD ointment, Xeroform daily and as required * Patient to follow-up with hand packer after discharge 2. Starvation ketoacidosis Most possibly from alcohol intake. Resolved after IV fluids. 3. Diabetes mellitus On lantus, janumet and metformin at home which are placed on hold. He received Levemir 20 units subcutaneous every night and placed on insulin sliding scale. Continued gabapentin 600 mg PO TID for peripheral neuropathy 4. Uncontrolled HTN BP on admission elevated to 198/100. His home medication lisinopril 10 mg was held in the hospital because of acute kidney injury. He was given IV fluids after which creatinine came down to 1.2. He was continued to have high blood pressures throughout the hospital stay. He was given amlodipine and hydralazine in the hospital for better control of hypertension. Patient was advised to take lisinopril 20 mg daily for high blood pressure after d/c and was advised to follow-up with primary care physician to manage blood pressure further. We also started him on new medication for blood pressure control amlodipine 5 mg daily and he was advised not to take amlodipine if he feels dizzy or lightheaded. 5. ETOH abuse Patient endorsed 10 alcoholic beverages/week for the last 35 years. He was placed on CIWA monitoring. Received Ativan as required based on CIWA scores. He was encouraged to stop alcohol. He was given 1 banana bag and multivitamin, thiamine, folate 6. Depression/anxiety Continued seroquel 100 mg PO QPM Continued Cymbalta 90 mg PO daily 7. Tobacco use Tobacco cessation counseling provided Provided Nicotine patch 14 mg top daily 8. Dizziness Patient reported ongoing dizziness. Denied any syncopal events. He denied any chest pain, palpitations, headache, weakness. Most possibly from dehydration and infection. His orthostatic vitals were negative. He was given supportive management and IV fluids. DNR/DNI Pain pathway CC2 diet received Lovenox for DVT prophylaxis Complications: none Allergies: Coded Allergies: NO KNOWN ALLERGIES (11/18/14) Significant Procedures: none Pertinent Lab Results: cxr FINDINGS: The lungs are well expanded. There is no focal consolidation, edema, or effusion. No pneumothorax. The cardiomediastinal silhouette is within normal limits. No acute osseous abnormality. IMPRESSION: No acute pulmonary findings. footxray IMPRESSION: Bilateral soft tissue swelling centered at the level of the metatarsophalangeal joints. No underlying osseous abnormality. Disposition Summary Disposition Principal Diagnosis: Bilateral foot cellulitis with ulcers Acute kidney injury- resolved Dizziness uncontrolled htn Additional Diagnosis: none Discharge Disposition: home health services Discharge Instructions General Discharge Information Code Status: Do Not Resucitate/Intubat Patient's Diet: Consistent carbohydrate diet Patient's Activity: As tolerated, use surgical shoes Follow-Up Instructions/Appts: Patient was advised to take lisinopril and amlodipine. He was also told to not to take amlodipine if he he feels lightheaded or dizziness. * He was advised to go to primary care doctor within 1 week, mostly before this Wednesday for further monitoring of blood pressure and adjustment of medications. * Please follow-up Dr. Vieira within 1-2 weeks after discharge * Daily wound care dressings. Medications at Discharge Discharge Medications: Stop taking the following medications: Lisinopril (Lisinopril) 10 MG TABLET ORAL DAILY Qty = 30 Sitagliptin Phos/Metformin HCl (Janumet 50-1,000 MG Tablet) 1 EACH TABLET ORAL TWICE DAILY Qty = 180 Insulin Glargine,Hum.rec.anlog (Lantus Solostar) 100 UNIT/ML (3 ML) INSULN.PEN Inject into fatty tissue Every night Days = 7 Continue taking these medications: Gabapentin (Gabapentin) 300 MG CAPSULE 2 Capsule ORAL THREE TIMES DAILY Comments: Last Taken: 04/27/17 Time: 4:00 PM Mirtazapine (Remeron) 30 MG TABLET 1 Tablet ORAL Every night Comments: Last Taken: 04/26/17 Time: 9:00 PM Insulin Glargine,Hum.rec.anlog (Lantus Solostar) 100 UNIT/1 ML INSULN.PEN 28 Unit Inject into fatty tissue Every night Qty = 15 Comments: NOT GIVEN IN HOSITAL Quetiapine Fumarate (Quetiapine Fumarate) 100 MG TABLET 1 Tablet ORAL Every night Qty = 30 Comments: Last Taken: 04/26/17 Time: 9:00 PM Duloxetine HCl (Duloxetine HCl) 30 MG CAPSULE.DR 3 Capsule ORAL DAILY Qty = 30 Comments: Last Taken: 04/27/17 Time: 8:30 AM Sitagliptin Phosphate (Januvia) 100 MG TABLET 1 Tablet ORAL DAILY Qty = 90 Comments: NOT GIVEN IN HOSPITAL Metformin HCl (Metformin HCl) 500 MG TABLET 1 Tablet ORAL TWICE DAILY Qty = 180 Comments: NOT GIVEN IN HOSPITAL Start taking the following new medications: Amoxicillin/Potassium Clav (Augmentin 875-125 Tablet) 875 MG-125 MG TABLET 1 Tablet ORAL TWICE DAILY Qty = 20 No Refills Instructions: . Comments: NOT GIVEN IN HOSPITAL Silver Sulfadiazine (Silvadene) 1 % CREAM..G. 1 Application On the skin DAILY as needed for cellulitis Qty = 1 No Refills Comments: Last Taken: 04/27/17 Time: 11:00 AM Lisinopril (Lisinopril) 20 MG TABLET 1 Tablet ORAL DAILY Qty = 30 No Refills Comments: Last Taken: 04/25/17 Time: 9:00 AM (10MG GIVEN ) Acetaminophen (Pain Reliever) 650 MG TABLET.ER 1 Tablet ORAL EVERY 6 HOURS NEEDED as needed for pain Qty = 60 No Refills Comments: Last Taken: 04/26/17 Time: 6:30 PM Amlodipine Besylate (Amlodipine Besylate) 5 MG TABLET 1 Tablet ORAL DAILY Qty = 30 No Refills Comments: Last Taken: 04/27/17 Time: 8:30 AM Copies To: JATIN WHEAT DPM; MIGUEL ARGUETA MD
[2017-04-27] MEDS ORDERED: AMLODIPINE BESYL5 M1 PO (15:58)
--- NOTE | 2017-04-27 16:07 | Event Note ---
Event Note Event Note: Patient blood pressure was 180/90 this morning. * He received amlodipine 10 mg and hydralazine 10 mg after which his blood pressure came down to 148/102. * Patient is willing to go home now. * Dr. Fry discussed in detail about side effects of high blood pressure- having heart attack, stroke etc. * Patient completely understood about uncontrolled hypertension. * We increased his home medication lisinopril from 10 mg to 20 mg. * Also started him on new medication amlodipine 5 mg. * Patient was advised to take lisinopril and amlodipine. He was also told to not to take amlodipine if he he feels lightheaded or dizziness. * He was advised to go to primary care doctor within 1 week, mostly before this Wednesday for further monitoring of blood pressure and adjustment of medications. * We will send all the hospital reports to his primary care doctor.
--- NOTE | 2017-04-27 16:20 | NUR ---
NURSING NOTE: PT BP AT TIME OF DISCHARGE 148/102. DR. ASHWIN SIDDIQUI AND DANI ADDED TO CMR. PT TO F/U W/PRIMARY CARE FOR BP MANAGEMENT. DISCHARGE INSTRUCTIONS AND PRESCRIPTIONS GIVEN W/VERBAL UNDERSTANDING.
== END 2017-04-27 16:24 | disposition home health service (06) | DRG 603 ==
LOC: ERH 11:25 → 2NB 13:55 → ERHI 13:55 → ENRESERV 14:16 → ENTRNSPT 14:45 → CMPTRNSPT 15:09 → 2NB 15:13
PROVIDERS: Physician Assistant; Student in an Organized Health Care Education/Training Program; ADMIT Internal Medicine
DX: L03.116 Cellulitis of left lower limb (principal); N17.9 Acute kidney failure, unspecified; E87.2 Acidosis; E10.42 Type 1 diabetes mellitus with diabetic polyneuropathy; T25.321A Burn of third degree of right foot, initial encounter; L97.421 Non-pressure chronic ulcer of left heel and midfoot limited to breakdown of skin; L97.411 Non-pressure chronic ulcer of right heel and midfoot limited to breakdown of skin; T25.322A Burn of third degree of left foot, initial encounter; L03.115 Cellulitis of right lower limb; E10.621 Type 1 diabetes mellitus with foot ulcer; L97.521 Non-pressure chronic ulcer of other part of left foot limited to breakdown of skin; L97.511 Non-pressure chronic ulcer of other part of right foot limited to breakdown of skin; Z79.4 Long term (current) use of insulin; T73.0XXA Starvation, initial encounter; X58.XXXA Exposure to other specified factors, initial encounter; I10 Essential (primary) hypertension; F41.8 Other specified anxiety disorders; F17.210 Nicotine dependence, cigarettes, uncomplicated; Z66 Do not resuscitate; R42 Dizziness and giddiness; E78.5 Hyperlipidemia, unspecified; F10.20 Alcohol dependence, uncomplicated; X19.XXXA Contact with other heat and hot substances, initial encounter; Y92.008 Other place in unspecified non-institutional (private) residence as the place of occurrence of the external cause
CPT/HCPCS: 2NBSP; 36415; 73630-LT; 73630-RT; 82436; 87040; 93005; 93010; 96374; 96375; 97110-GO; 97116-GO; 97161-GP; 97530-GO; J0713; J0780; J1644; J1815; J2405; J3250; J3370; J7040; J7060

== ENCOUNTER 2017-04-29 11:33 | Observation (INO) | payer OTHER, MEDICARE ==
[~2017-04-29] VITALS: Ht 182.9 cm; Wt 103.9 kg
[~2017-04-29 11:33] MED LIST changes: +AMLODIPINE BESYL5 M1 PO; +AUGMENTIN 875-1 EACH PO; +JANUVIA100 M1 PO; +LISINOPRIL20 M1 PO; +METFORMIN HCL500 M3 PO; +PAIN RELIEVER650 MG PO; +SILVADENE20 GM TOP
--- NOTE | 2017-04-29 11:35 | NUR ---
PT TO ROOM19 BIBA FROM HOME FOR C/O GENERAL WEAKNESS AND UNABLE TO TAKE CARE OF HIMSELF. PT WAS DC FROM [facility] ON 04/09 (BILAT FOOT INFECTION). ALSO PT REPORTS CONSTIPATION SINCE DC FROM HOSPITAL, BUT GOT LOOSE STOOLS TODAY. PT ARRIVED AAOx3, DENIES PAIN,DENIES CHEST PAIN,SOB. VSS. DRESSING TO BILATERAL FOOT IN PLACE. HX OF NEUROPATHY, DIABETES. RAFFAELE VANCE TO BEDSIDE FOR PT EVAL.
--- NOTE | 2017-04-29 11:54 | ED GENERAL ADULT ---
History of Present Illness General Chief Complaint: General Adult Stated Complaint: WEAKNESS Source: patient, old records, EMS Exam Limitations: poor historian Vital Signs & Intake/Output Vital Signs & Intake/Output Vital Signs Date Time Temp Pulse Resp B/P B/P Pulse O2 O2 Flow FiO2 Mean Ox Delivery Rate 04/29 1809 97.8 78 18 189/89 96 Room Air 04/29 1543 97.2 78 18 176/87 95 Room Air 04/29 1346 97.6 83 18 176/87 94 Room Air 04/29 1140 95 Room Air 04/29 1135 98.2 81 18 161/77 95 Room Air Allergies Coded Allergies: NO KNOWN ALLERGIES (11/18/14) Reconcile Medications Acetaminophen (Pain Reliever) 650 MG TABLET.ER 1 TAB PO Q6-PRN PRN pain Amlodipine Besylate 5 MG TABLET 1 TAB PO DAILY hypertension Amoxicillin/Potassium Clav (Augmentin 875-125 Tablet) 875 MG-125 MG TABLET 1 TAB PO BID cellulitis . Cholecalciferol (Vitamin D3) (Vitamin D) (Unknown Strength) TABLET (Unknown Dose) PO DAILY SUPPLEMENT (Reported) Duloxetine HCl 30 MG CAPSULE.DR 3 CAP PO DAILY MENTAL HEALTH (Reported) Gabapentin 300 MG CAPSULE 2 CAP PO TID PAIN (Reported) Insulin Glargine,Hum.rec.anlog (Lantus Solostar) 100 UNIT/1 ML INSULN.PEN 28 UNIT SC QPM DIABETES (Reported) Lisinopril 20 MG TABLET 1 TAB PO DAILY hypertension Metformin HCl 500 MG TABLET 1 TAB PO BID DIABETES (Reported) Mirtazapine (Remeron) 30 MG TABLET 1 TAB PO QPM SLEEP (Reported) [place]-3 Fatty Acids/Fish Oil (Fish Oil 1,000 MG Softgel) (Unknown Strength) CAPSULE (Unknown Dose) PO DAILY SUPPLEMENT (Reported) Quetiapine Fumarate 100 MG TABLET 1 TAB PO QPM SLEEP (Reported) Silver Sulfadiazine (Silvadene) 1 % CREAM..G. 1 RHIANNON TOP DAILY PRN cellulitis Sitagliptin Phosphate (Januvia) 100 MG TABLET 1 TAB PO DAILY DIABETES ( Reported) Triage Note: PT TO ROOM19 BIBA FROM HOME FOR C/O GENERAL WEAKNESS AND UNABLE TO TAKE CARE OF HIMSELF. PT WAS DC FROM [facility] ON 04/09 (BILAT FOOT INFECTION). ALSO PT REPORTS CONSTIPATION SINCE DC FROM HOSPITAL, BUT GOT LOOSE STOOLS TODAY. PT ARRIVED AAOx3, DENIES PAIN,DENIES CHEST PAIN,SOB. VSS. DRESSING TO BILATERAL FOOT IN PLACE. HX OF NEUROPATHY, DIABETES. RAFFAELE VANCE TO BEDSIDE FOR PT EVAL. Triage Nurses Notes Reviewed? yes Onset: Abrupt Duration: day(s):, constant, getting worse Timing: recent history Injury Environment: home HPI: 56-year-old male comes into emergency room for increased weakness. Patient was just discharged here from [facility] a few days ago. He reports he felt better on discharge but yesterday he started to experience some diarrhea as well as general weakness. Patient reports that he was admitted for infection on his feet from [facility]. Patient has neuropathy. History of diabetes. Patient is just feeling generally fatigued. Poor historian. He denies any chest pain shortness of breath cough. Currently on antibiotics. Nothing seems to make the symptoms better or worse. Denies any other associated symptoms. (KENNY CROSS) Past History Travel History Traveled to [facility] past 21 day No Medical History Any Pertinent Medical History? see below for history Neurological: NEUROPATHY EENT: NONE Cardiovascular: NONE Respiratory: NONE Gastrointestinal: NONE Hepatic: NONE Renal: NONE Musculoskeletal: NONE Psychiatric: alcohol dependence, depression Endocrine: IDDM Cancer(s): NONE History of MRSA: No History of VRE: No History of CDIFF: No Surgical History Surgical History: non-contributory Psychosocial History Who do you live with Patient/Self Services at Home None What is your primary language Kiswahili Tobacco Use: Current Daily Use Daily Tobacco Use Amount/Type: => 5 Cigarettes daily Family History Hx Contributory? No (KENNY CROSS) Review of Systems Review of Systems Constitutional: Reports: see HPI. EENTM: Reports: no symptoms. Respiratory: Reports: no symptoms. Cardiovascular: Reports: no symptoms. GI: Reports: see HPI. Genitourinary: Reports: no symptoms. Musculoskeletal: Reports: see HPI. Skin: Reports: see HPI. Neurological/Psychological: Reports: no symptoms. Hematologic/Endocrine: Reports: no symptoms. Immunologic/Allergic: Reports: no symptoms. All Other Systems: Reviewed and Negative (KENNY CROSS) Physical Exam Physical Exam General Appearance: no apparent distress, lethargic Head: atraumatic Eyes: Bilateral: normal appearance. Ears, Nose, Throat: normal ENT inspection, hearing grossly normal Neck: normal inspection Respiratory: no respiratory distress Cardiovascular: regular rate/rhythm Gastrointestinal: soft, tenderness (mild lower abd) Back: normal inspection Extremities: normal range of motion, no edema Neurologic/Psych: awake, alert, oriented x 3, normal gait Skin: intact, normal color Core Measures ACS in differential dx? No CVA/TIA Diagnosis: No Severe Sepsis Present: No Septic Shock Present: No (KENNY CROSS) Progress Differential Diagnoses I considered the following diagnoses in my evaluation of the patient: C. difficile, cellulitis, osteomyelitis, sepsis, pneumonia, UTI, Plan of Care: Orders Procedure Date/time Status Consistent Carbohydrate 1 04/30 B Active Patient Data 04/[address] in observation 04/29 190 Active URINALYSIS 04/29 1153 Complete C.DIFFICILE 04/29 1150 Active BLOOD CULTURE 04/29 1150 Active LACTIC ACID 04/29 1150 Complete WESTERGREN SED RATE 04/29 1150 Complete C-REACTIVE PROTEIN 04/29 1150 Complete COMPREHENSIVE METABOLIC PANEL 04/29 1150 Complete CBC WITHOUT DIFFERENTIAL 04/29 1150 Complete EKG 04/29 1150 Active Laboratory Tests 04/29/17 1800: Urine Color YEL, Urine Clarity CLEAR, Urine pH 6.5, Ur Specific [place] 1.010, Urine Protein 100 H, Urine Ketones NEG, Urine Nitrite NEG, Urine Bilirubin NEG, Urine Urobilinogen 2.0 H, Ur Leukocyte Esterase NEG, Ur Microscopic SEDIMENT EXAMINED, Urine RBC 3-5, Urine WBC 1-3 H, Ur Epithelial Cells RARE, Urine Hemoglobin SMALL H, Urine Glucose NEG 04/29/17 1450: Lactic Acid Cancelled 04/29/17 1200: Anion Gap 7, Estimated GFR > 60, BUN/Creatinine Ratio 18.0, Glucose 138 H, Lactic Acid 1.0, Calcium 8.6, Total Bilirubin 0.7, AST 52, ALT 62, Alkaline Phosphatase 113, C-Reactive Prot, Quant 3.2 H, Total Protein 6.0 L, Albumin 3.0 L, Globulin 3.0, Albumin/Globulin Ratio 1.0 L, CBC w Diff NO MAN DIFF REQ, RBC 4.13 L, MCV 88.6, MCH 30.2, RDW 13.6, MPV 7.3 L, Gran % 75.9 H, Lymphocytes % 13.7 L, Monocytes % 8.9, Eosinophils % 1.3, Basophils % 0.2, Absolute Granulocytes 6.5, Absolute Lymphocytes 1.2, Absolute Monocytes 0.8 H, Absolute Eosinophils 0.1, Absolute Basophils 0, PUBS MCHC 34.0, ESR Westergren 90 H Microbiology 04/29 1203 BLOOD: Blood Culture - RECD 04/29 1200 BLOOD: Blood Culture - RECD 04/29 1150 STOOL: Clostridium difficile Toxin A & B - ORD Diagnostic Imaging: Viewed by Me: Radiology Read, MRI. Discussed w/RAD: Radiology Read, MRI. Radiology Impression: EXAM TYPE: RAD - XRY-TOES, LEFT EXAMINATION: XR TOES, LEFT CLINICAL INFORMATION: Evaluate for osteomyelitis cellulitis left great toe. COMPARISON: Prior examination 04/23/2017. TECHNIQUE: 3 views of the left toes including AP view of the foot FINDINGS: There is persistent soft tissue swelling about the great toe. There is a small subchondral cyst or periarticular erosion along the medial head of the proximal phalanx at the IP joint unchanged. The bones and joints are otherwise unremarkable. IMPRESSION: Small cyst versus erosion along the radial aspect of the head of the proximal phalanx at the IP joint this could be related to osteoarthritis of the joint. However inflammatory arthropathy including osteomyelitis or septic arthritis cannot be excluded., SERVICE DATE: 04/29/17 EXAM TYPE: MRI - MRI-LT FOOT W/O CHE EXAMINATION: MR FOOT WITHOUT CONTRAST, LEFT CLINICAL INFORMATION: Evaluate for osteomyelitis left great toe. Redness, elevated sedimentation rate. X-rays show some erosion. COMPARISON: X-ray of the left toes performed same day and left foot April 2017. TECHNIQUE: MRI of the left foot was performed without contrast. The exam was performed without contrast per request. The field of view is limited to the forefoot given the clinical indication. FINDINGS: GREAT TOE: There is a tiny subchondral cyst along the radial aspect of the head of the proximal phalanx at the IP joint. This does not have the appearance of an erosion. This suggests mild arthrosis. There is no significant joint effusion. There is no surrounding marrow edema. There is abnormal signal in the plantar medial soft tissues overlying the IP joint manifested by decreased T1 with poorly defined increased heterogeneous T2 signal. This could reflect a localized cellulitis. There is mild arthrosis of the 1st metatarsophalangeal joint with a tiny subchondral cyst present in the metatarsal head. There is a trace joint effusion. Additional findings: There is no abnormal marrow edema throughout the remaining bones of the forefoot with specific attention made to the great toe given the clinical indication. There is generalized abnormal signal throughout the dorsal subcutaneous soft tissues. This could reflect edema and/or cellulitis or a combination of both. There is some mild signal abnormality in the plantar soft tissues overlying the 1st and 4th and 5th metatarsophalangeal joints, likely reflecting adventitial bursitis. MUSCLES/TENDONS: Generalized abnormal signal throughout the muscles of the foot manifested by increased T2 signal. No focal fluid collection. IMPRESSION: No evidence for osteomyelitis with specific attention made to the great toe given the clinical indication and prior radiographic findings. The changes of the IP joint of the great toe are compatible with mild arthrosis. There are soft tissue changes in the plantar medial soft tissues of the IP joint of the great toe compatible with a cellulitis. Generalized abnormal signal throughout the musculature of the foot compatible with a nonspecific myositis. No focal fluid collection. Mild arthrosis of the 1st metatarsophalangeal joint. Plantar soft tissue changes overlying the 1st, 4th and 5th MTP joints compatible with adventitial bursitis. DICTATED BY: MIGUEL NULL MD Initial ED EKG: normal intervals, normal p-waves, normal sinus rhythm, rate (80) (KENNY CROSS) Departure Departure Disposition: STILL A PATIENT Condition: Stable Clinical Impression Primary Impression: Cellulitis of left foot Secondary Impressions: Diarrhea, Multifactorial gait disorder Referrals: MIGUEL ARGUETA MD (PCP/Family) Departure Forms: Customer Survey General Discharge Information Observation Note Spoke With: ASHANTI WILSON MDIvette Physician Advisor Notified: RAUL COONEY,KINGSLEY Perez Place Patient In: Non-ED OBS Care Area Rationale for Observation: My rational for observation is as follows . Patient will require a stool sample for C. difficile. Wound care consult. Physical therapy consultation. Patient unable to ambulate here in the emergency room. Unsafe to be discharged home. (KENNY CROSS) PA/MIME ARTIST Co-Sign Statement Statement: ED Attending supervision documentation- [X] I saw and evaluated the patient. I have also reviewed all the pertinent lab results and diagnostic results. I agree with the findings and the plan of care as documented in the PA's/MIME ARTIST's documentation. [X] I have reviewed the ED Record and agree with the PA's/MIME ARTIST's documentation. [] Additions or exceptions (if any) to the PAs/MIME ARTIST's note and plan are summarized below: [] (CAMMY COONEY,MOHIT Perez) Critical Care Note Critical Care Note Critical Care Time: non-applicable (RAJIV CASTORENA,KENNY)
--- NOTE | 2017-04-29 12:20 | NUR ---
PT TO XRAY VIA STRETCHER
[2017-04-29 12:37] LABS: ABSOLUTE BASOPHIL COUNT 0 /CUMM (0.0-0.2); ABSOLUTE EOSINOPHIL COUNT 0.1 /CUMM (0.0-0.7); ABSOLUTE GRANULOCYTE CT 6.5 /CUMM (1.4-6.5); ABSOLUTE LYMPH COUNT 1.2 /CUMM (1.2-3.4); ABSOLUTE MONOCYTE COUNT 0.8 /CUMM (0.10-0.60); BASOPHIL % 0.2 % (0.0-2.0); EOSINOPHIL % 1.3 % (0-5); GRANULOCYTE % 75.9 % (42.2-75.2); HEMATOCRIT 36.6 % (42-52); MEAN CORPUSCULAR HGB 30.2 PG (27.0-31.0); MEAN CORPUSCULAR VOLUME 88.6 FL (80.0-94.0); MEAN PLATELET VOLUME 7.3 FL (7.4-10.4); PLATELET COUNT 394 /CUMM (130-400); RBC DISTRIBUTION WIDTH 13.6 % (11.5-14.5); RED BLOOD CELL CT 4.13 /CUMM (4.70-6.10); WHITE BLOOD CELL COUNT 8.5 /CUMM (4.8-10.8)
--- NOTE | 2017-04-29 13:12 | RADIOLOGY REPORT ---
EXAMINATION: XR TOES, LEFT CLINICAL INFORMATION: Evaluate for osteomyelitis cellulitis left great toe. COMPARISON: Prior examination 04/23/2017. TECHNIQUE: 3 views of the left toes including AP view of the foot FINDINGS: There is persistent soft tissue swelling about the great toe. There is a small subchondral cyst or periarticular erosion along the medial head of the proximal phalanx at the IP joint unchanged. The bones and joints are otherwise unremarkable. IMPRESSION: Small cyst versus erosion along the radial aspect of the head of the proximal phalanx at the IP joint this could be related to osteoarthritis of the joint. However inflammatory arthropathy including osteomyelitis or septic arthritis cannot be excluded.
--- NOTE | 2017-04-29 13:30 | NUR ---
DRESSING REAPPLIED TO BILAT FOOT. PT ASSISTED TO RESTROOM BY WHEELCHAIR.
--- NOTE | 2017-04-29 15:43 | NUR ---
PT TO MRI BY STRETCHER.
[2017-04-29] MEDS ORDERED: VITAMIN D2000 UNI1 PO (16:24)
[2017-04-29] MEDS ORDERED: FISH OIL 1,0001 EAC1 PO (16:25)
--- NOTE | 2017-04-29 16:27 | NUR ---
PT RETURNED FROM MRI BY STRETCHER.
--- NOTE | 2017-04-29 16:57 | MRI REPORT ---
EXAMINATION: MR FOOT WITHOUT CONTRAST, LEFT CLINICAL INFORMATION: Evaluate for osteomyelitis left great toe. Redness, elevated sedimentation rate. X-rays show some erosion. COMPARISON: X-ray of the left toes performed same day and left foot April 2017. TECHNIQUE: MRI of the left foot was performed without contrast. The exam was performed without contrast per request. The field of view is limited to the forefoot given the clinical indication. FINDINGS: GREAT TOE: There is a tiny subchondral cyst along the radial aspect of the head of the proximal phalanx at the IP joint. This does not have the appearance of an erosion. This suggests mild arthrosis. There is no significant joint effusion. There is no surrounding marrow edema. There is abnormal signal in the plantar medial soft tissues overlying the IP joint manifested by decreased T1 with poorly defined increased heterogeneous T2 signal. This could reflect a localized cellulitis. There is mild arthrosis of the 1st metatarsophalangeal joint with a tiny subchondral cyst present in the metatarsal head. There is a trace joint effusion. Additional findings: There is no abnormal marrow edema throughout the remaining bones of the forefoot with specific attention made to the great toe given the clinical indication. There is generalized abnormal signal throughout the dorsal subcutaneous soft tissues. This could reflect edema and/or cellulitis or a combination of both. There is some mild signal abnormality in the plantar soft tissues overlying the 1st and 4th and 5th metatarsophalangeal joints, likely reflecting adventitial bursitis. MUSCLES/TENDONS: Generalized abnormal signal throughout the muscles of the foot manifested by increased T2 signal. No focal fluid collection. IMPRESSION: No evidence for osteomyelitis with specific attention made to the great toe given the clinical indication and prior radiographic findings. The changes of the IP joint of the great toe are compatible with mild arthrosis. There are soft tissue changes in the plantar medial soft tissues of the IP joint of the great toe compatible with a cellulitis. Generalized abnormal signal throughout the musculature of the foot compatible with a nonspecific myositis. No focal fluid collection. Mild arthrosis of the 1st metatarsophalangeal joint. Plantar soft tissue changes overlying the 1st, 4th and 5th MTP joints compatible with adventitial bursitis.
--- NOTE | 2017-04-29 17:44 | NUR ---
RAFFAELE VANCE AT BEDSIDE TO DISCUSS POC.
--- NOTE | 2017-04-29 18:03 | NUR ---
FOOD TRAY ORDERED.
--- NOTE | 2017-04-29 18:41 | NUR ---
FOOD PROVIDED TO PT.
--- NOTE | 2017-04-29 19:02 | NUR ---
CASE MANAGEMENT AT BEDSIDE.
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
--- NOTE | 2017-04-29 19:59 | NUR ---
MD STEVE TO BEDSIDE FOR PT EVAL.
--- NOTE | 2017-04-29 20:01 | NUR ---
BED 185
--- NOTE | 2017-04-29 20:22 | NUR ---
REPORT GIVEN TO CHEYANNE FOX TO 2NB DISTRIBUTION BOOKED
--- NOTE | 2017-04-29 22:23 | NUR ---
nurse note: pt bp 160/90 and pulse 81. intelligence intern made aware. will medicate now
[2017-04-29 22:24] VITALS: BP 160/90
[2017-04-30 00:17] VITALS: BP 148/60
--- NOTE | 2017-04-30 05:36 | NUR ---
NURSE NOTE: PT BP 100/70, BIOCHEMISTRY TECHNICIAN PAGED AND MADE AWARE.
[2017-04-30 06:23] VITALS: BP 100/70
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
[2017-04-30 08:46] LABS: ABSOLUTE BASOPHIL COUNT 0 /CUMM (0.0-0.2); ABSOLUTE EOSINOPHIL COUNT 0.1 /CUMM (0.0-0.7); ABSOLUTE GRANULOCYTE CT 6.1 /CUMM (1.4-6.5); ABSOLUTE LYMPH COUNT 1.3 /CUMM (1.2-3.4); ABSOLUTE MONOCYTE COUNT 0.9 /CUMM (0.10-0.60); BASOPHIL % 0.4 % (0.0-2.0); EOSINOPHIL % 1.4 % (0-5); GRANULOCYTE % 72.1 % (42.2-75.2); HEMATOCRIT 35.1 % (42-52); MEAN CORPUSCULAR HGB 30.3 PG (27.0-31.0); MEAN CORPUSCULAR HGB CONC 33.9 G/DL (33.0-37.0); MEAN CORPUSCULAR VOLUME 89.5 FL (80.0-94.0); MEAN PLATELET VOLUME 7.2 FL (7.4-10.4); PLATELET COUNT 336 /CUMM (130-400); RBC DISTRIBUTION WIDTH 14.1 % (11.5-14.5); RED BLOOD CELL CT 3.93 /CUMM (4.70-6.10); WHITE BLOOD CELL COUNT 8.5 /CUMM (4.8-10.8)
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
--- NOTE | 2017-04-30 12:13 | PN- Att Addend ---
Attending Addendum Attending Brief Note Patient seen and examined, and overall feeling better today. Patient was recently discharged from [facility] when he was admitted with bilateral feet wounds as well as associated cellulitis. He was discharged on antibiotics. Now this time placed on general medicine observation with generalized weakness, diarrhea, need to rule out C. difficile. Vital Signs Date Time Temp Pulse Resp B/P B/P Pulse O2 O2 Flow FiO2 Mean Ox Delivery Rate 04/30 1042 98.5 67 100/70 04/30 0921 Room Air 04/30 0910 Room Air 04/30 0905 Room Air 04/30 0623 98.5 67 20 100/70 94 Room Air 04/30 0017 148/60 04/29 2242 81 160/90 04/29 2224 99.4 81 19 160/90 93 Room Air 04/29 2026 98.5 81 18 186/88 95 Room Air 04/29 1809 97.8 78 18 189/89 96 Room Air 04/29 1543 97.2 78 18 176/87 95 Room Air 04/29 1346 97.6 83 18 176/87 94 Room Air on exam; aox3, nad. cv; s1,s2, rrr resp; clear abd; soft, nt, bs+ ext; no edema skin; no erythema on le, b/l feet wrapped in dressing. Laboratory Tests 04/30 04/29 0607 1800 Chemistry Sodium (137 - 145 mmol/L) 137 Potassium (3.5 - 5.1 mmol/L) 3.8 Chloride (98 - 107 mmol/L) 101 Carbon Dioxide (22 - 30 mmol/L) 32 H Anion Gap (5 - 16) 4 L BUN (9 - 20 mg/dL) 18 Creatinine (0.7 - 1.2 mg/dL) 1.5 H Estimated GFR (>60 ml/min) 48 L BUN/Creatinine Ratio (7 - 25 %) 12.0 Hematology CBC w Diff NO MAN DIFF REQ WBC (4.8 - 10.8 /CUMM) 8.5 RBC (4.70 - 6.10 /CUMM) 3.93 L Hgb (14.0 - 18.0 G/DL) 11.9 L Hct (42 - 52 %) 35.1 L MCV (80.0 - 94.0 FL) 89.5 MCH (27.0 - 31.0 PG) 30.3 RDW (11.5 - 14.5 %) 14.1 Plt Count (130 - 400 /CUMM) 336 MPV (7.4 - 10.4 FL) 7.2 L Gran % (42.2 - 75.2 %) 72.1 Lymphocytes % (20.5 - 51.1 %) 15.7 L Monocytes % (1.7 - 9.3 %) 10.4 H Eosinophils % (0 - 5 %) 1.4 Basophils % (0.0 - 2.0 %) 0.4 Absolute Granulocytes (1.4 - 6.5 /CUMM) 6.1 Absolute Lymphocytes (1.2 - 3.4 /CUMM) 1.3 Absolute Monocytes (0.10 - 0.60 /CUMM) 0.9 H Absolute Eosinophils (0.0 - 0.7 /CUMM) 0.1 Absolute Basophils (0.0 - 0.2 /CUMM) 0 PUBS MCHC (33.0 - 37.0 G/DL) 33.9 Urines Urine Color (YEL,AMB,STR) YEL Urine Clarity (CLEAR) CLEAR Urine pH (5.0 - 8.0) 6.5 Ur Specific [place] (1.001 - 1.035) 1.010 Urine Protein (NEG,<30 MG/DL) 100 H Urine Ketones (NEG) NEG Urine Nitrite (NEG) NEG Urine Bilirubin (NEG) NEG Urine Urobilinogen (0.1 - 1.0 EU/dl) 2.0 H Ur Leukocyte Esterase (NEG) NEG Ur Microscopic SEDIMENT EXAMINED Urine RBC (0 - 5 /HPF) 3-5 Urine WBC (0 - 2 /HPF) 1-3 H Ur Epithelial Cells (NONE,FEW) RARE Urine Hemoglobin (NEG) SMALL H Urine Glucose (N MG/DL) NEG 04/29 1450 Chemistry Lactic Acid Cancelled A/P; 56 y/o M with pmh sig for anxiety, depression, suicidal attempt 2009, diabetes, peripheral neuropathy on gabapentin, hypertension, hyperlipidemia, current smoker was recently discharged from [facility] when he was admitted with bilateral feet wounds as well as associated cellulitis. He was discharged on antibiotics. Now this time placed on general medicine observation with generalized weakness, diarrhea, need to rule out C. difficile. Today patient has mild acute kidney injury with creatinine bumped to 1.5, likely secondary to dehydration. No further diarrhea. Will monitor for any diarrhea and if patient has diarrhea and stool should be checked for C. difficile. Start the patient on gentle IV hydration. Blood pressure was also low this morning likely secondary to dehydration. Patient overall feeling much better. We have stopped his Augmentin now that he has completed total of seven-day course. Continue the rest of the medications. DVT per flexes: Heparin subcutaneous. Disposition likely discharge to rehabilitation tomorrow if creatinine improves.
[2017-04-30 14:04] VITALS: BP 140/90
[2017-04-30] MEDS ORDERED: PROBIOTIC & AC1 EACH PO (14:34)
--- NOTE | 2017-04-30 14:39 | Patient Discharge Instructions ---
Discharge Instructions General Discharge Information You were seen/treated for: Diarrhea, nausea, vomiting; SHEILA acute kidney injury, secondary to dehydration Special Instructions: Please maintain hydration, drink plenty of fluids. Please follow-up with your primary care physician within 10 days of discharge. Please return to emergency if symptoms worsen. Diet Continue normal diet: No Recommended Diet: Diabetic Activity Full Activity/No Limits: No Activity Self Limited: Yes (needs assistance) Acute Coronary Syndrome Inclusion Criteria At DC or during hospital stay patient has or had the following: ACS DIAGNOSIS No Discharge Core Measures Meds if any: Prescribed or Continued at Discharge Meds if any: NOT Prescribed or Continued at Discharge Congestive Heart Failure Inclusion Criteria At DC or during hospital stay patient has or had the following: CHF DIAGNOSIS No Discharge Core Measures Meds if any: Prescribed or Continued at Discharge Meds if any: NOT Prescribed or Continued at Discharge Cerebrovascular accident Inclusion Criteria At DC or during hospital stay patient has or had the following: CVA/TIA Diagnosis No Discharge Core Measures Meds if any: Prescribed or Continued at Discharge Meds if any: NOT Prescribed or Continued at Discharge Venous thromboembolism Inclusion Criteria VTE Diagnosis No VTE Type NONE VTE Confirmed by (Test) NONE Discharge Core Measures - Per Current guidelines, there needs to be overlap - treatment for the first 5 days of Warfarin therapy. - If discharged on Warfarin prior to 5 days of - overlap therapy, the patient will need to be - assessed for post discharge needs including - *Post discharge parental anticoagulation - *Warfarin and/or parental anticoagulation education - *Follow up date to check INR post discharge At least 5 days overlap therapy as Inpatient No Meds if any: Prescribed or Continued at Discharge Note: Overlap Therapy is Warfarin and Anticoagulant Meds if any: NOT Prescribed or Continued at Discharge
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
[2017-04-30 22:13] VITALS: BP 162/90
[2017-05-01 06:00] VITALS: BP 148/80
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
[2017-05-01 15:04] VITALS: BP 160/74
--- NOTE | 2017-05-01 18:45 | Event Note ---
Event Note Event Note: patient reports that he has not been visited by any physician during the day. I Checked the daily notes and spoke to my news internship Dr. Des COONEY. My attending Dr. Mitchell spoke with Mr. Ivy over 30 minutes. Pateint was on phone and did not want to be bothered.
[2017-05-01 22:38] VITALS: BP 170/90
[2017-05-02 07:00] VITALS: BP 148/80
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
--- NOTE | 2017-05-02 09:48 | Event Note ---
Event Note Event Note: The PCP that was listed in the Discharge summery by me was a technical error that happened because of similarities of the names between providers. I contacted Medical record at 10:45 am and spoke to Bety about this.I asked the MR unit to do not transfer any copy of the D/C summedry to the listed provider. Unfortunately, we could not find a way to undo the the documentation, but there would be no transfer of records for now and tomorrow I would talk to Roberto from to find a permenant fix for this issue.
[2017-05-02 12:56] VITALS: BP 148/80
== END 2017-05-02 13:56 ==
LOC: ERH 11:33 → 2NB 19:06 → ERHI 19:06 → 2NB 19:06 → ENTRNSPT 20:22 → 2NB 20:32 → CMPTRNSPT 20:42 → 2NB 21:00
PROVIDERS: Physician Assistant Medical; Student in an Organized Health Care Education/Training Program; ADMIT Student in an Organized Health Care Education/Training Program
DX: R53.1 Weakness (principal); R11.2 Nausea with vomiting, unspecified; R19.7 Diarrhea, unspecified; L03.116 Cellulitis of left lower limb; I10 Essential (primary) hypertension; E10.40 Type 1 diabetes mellitus with diabetic neuropathy, unspecified; Z79.4 Long term (current) use of insulin; E78.5 Hyperlipidemia, unspecified; F10.20 Alcohol dependence, uncomplicated; Z87.891 Personal history of nicotine dependence
CPT/HCPCS: 75657; 36415; 73660-LT; 81001; 82436; 87040; 93005; 93010; 96372; 96374; G0378; J1644; J1650; J1815; J2405